=== PATIENT | female | born 1955 | race Caucasian/White ===

== ENCOUNTER 2020-12-28 10:37 | Inpatient (IN) | payer MEDICARE ==
[~2020-12-28 10:37] MED LIST: Rocuronium Bromide 10 MG/ML (10ML VIAL) ONE
[2020-12-28] MEDS ORDERED: Ondansetron PF 4 MG/2 ML Vial IVP PRN (10:39)
[2020-12-28] MEDS ORDERED: Ondansetron ODT 4 MG TAB PO PRN (10:39)
[2020-12-28] MEDS ORDERED: Bisacodyl 5 MG TAB PO PRN (10:39)
[2020-12-28 11:33] LABS: #Monocytes 0.3 10x3/uL (0.0-1.1); #Neutrophils 6.3 10x3/uL (1.5-8.4); %Basophils 0.1 % (0.0-2.0); %Lymphocytes 12.6 % (18.0-47.0); %Monocytes 3.7 % (0.0-10.0); %Neutrophils 82.9 % (40.0-75.0); Hemoglobin 13.8 g/dL (12.0-15.5); Mean Corpuscular HGB CONC 32.7 g/dL (32.0-36.0); Mean Corpuscular Hemoglobin 27.2 pg (27.0-33.0); Mean Corpuscular Volume 83.2 fl (81.6-98.3); Mean Platelet Volume 10.1 fl (7.4-10.4); Platelet Count 184 10x3/uL (150-450); RBC Distribution Width 14.4 % (11.5-14.5); Red Blood Cell (RBC) Count 5.07 10x6/uL (3.90-5.03); White Blood Cell (WBC) Count 7.6 10x3/uL (3.5-10.5)
[2020-12-28 11:37] LABS: Anion Gap 20 mmol/L (10-20); BUN (Urea Nitrogen) 15 mg/dL (9.8-20.1); Calc. Creatinine Clearance 125 mL/min (70-130); Calcium 8.5 mg/dL (7.8-10.44); Carbon Dioxide 22 mmol/L (23-31); Chloride 97 mmol/L (98-107); Glucose 175 mg/dL (80-115); Potassium 4.5 mmol/L (3.5-5.1); Sodium 134 mmol/L (136-145)
[2020-12-28] MEDS: Cefepime 1 GM in Sodium Chloride 0.9% 100 ML IVPB SCH ×2 (12:12→23:08)
[2020-12-28] MEDS: Zinc Sulfate 220 MG CAP PO SCH (12:13)
[2020-12-28 12:41] LABS: Bilirubin Neg (Negative); Blood, Urine 10 (Negative); Clarity Clear (Clear); Glucose, Urine (Dipstick) Normal (Negative); Ketone, Urine Negative (Negative); Leukocyte 100 (Negative); Nitrite Negative (Negative); Protein, Urine (Dipstick) 30 mg/dl (Neg-Trace); Urobilinogen Normal mg/dL (Less than 2)
[2020-12-28 12:48] LABS: Urine Culture Reflex No No
[2020-12-28 12:53] LABS: RBC/HPF 0-3 HPF (0-3); Squamous Epithelial 0-3 HPF (0-3)
[2020-12-28 12:54] LABS: Bacteria/HPF Rare-Few HPF (None Seen)
[2020-12-28 13:30] LABS: Legionella Urinary Ag Negative (Negative)
[2020-12-28 13:31] LABS: Strep pneumo Urine Ag NEGATIVE (NEGATIVE)
[2020-12-28] MEDS: Famotidine 20 MG TAB PO SCH (20:04)
[2020-12-28] MEDS: Doxycycline 100 MG CAP PO SCH (20:05)
[2020-12-29 04:34] LABS: #Monocytes 0.4 10x3/uL (0.0-1.1); #Neutrophils 8.4 10x3/uL (1.5-8.4); %Basophils 0.2 % (0.0-2.0); %Lymphocytes 11.5 % (18.0-47.0); %Monocytes 4.3 % (0.0-10.0); %Neutrophils 83.4 % (40.0-75.0); Hemoglobin 13.5 g/dL (12.0-15.5); Mean Corpuscular HGB CONC 32.1 g/dL (32.0-36.0); Mean Corpuscular Hemoglobin 27.2 pg (27.0-33.0); Mean Corpuscular Volume 84.5 fl (81.6-98.3); Mean Platelet Volume 10.3 fl (7.4-10.4); Platelet Count 232 10x3/uL (150-450); RBC Distribution Width 14.5 % (11.5-14.5); Red Blood Cell (RBC) Count 4.97 10x6/uL (3.90-5.03); White Blood Cell (WBC) Count 10.1 10x3/uL (3.5-10.5)
[2020-12-29 04:44] LABS: ALT (SGPT) 23 U/L (8-55); AST (SGOT) 60 U/L (5-34); Albumin 3.5 g/dL (3.4-4.8); Alkaline Phosphatase 77 U/L (40-110); Anion Gap 16 mmol/L (10-20); BUN (Urea Nitrogen) 18 mg/dL (9.8-20.1); Bilirubin, Total 0.4 mg/dL (0.2-1.2); Calc. Creatinine Clearance 134 mL/min (70-130); Calcium 8.3 mg/dL (7.8-10.44); Carbon Dioxide 26 mmol/L (23-31); Chloride 99 mmol/L (98-107); Glucose 138 mg/dL (80-115); Potassium 4.1 mmol/L (3.5-5.1); Protein, Total 5.5 g/dL (5.8-8.1); Sodium 137 mmol/L (136-145)
[2020-12-29 08:26] LABS: Actual Bicarbonate (HCO3a) 32.7 mEq/L (22-28); Base Excess (BEa) 7.9 mEq/L (-2.0 to +3.0); CO2 Tension 45.7 mmHg (35.0-45.0); Calcium, Ionized (arterial) 1.12 mmol/L (1.12-1.30); Carboxyhemoglobin (COHb) 0.5 gm% (0.0-3.0); O2 Tension (PaO2), arterial 52.5 mmHg (> 80.0); Puncture Site RRA; pH, Arterial 7.47 (7.35-7.45)
[2020-12-29 08:30] LABS: ALV-art Gradient 603.375 mmHg (0-20)
[2020-12-29] MEDS ORDERED: Zinc Sulfate 220 MG CAP PO SCH (09:00)
[2020-12-29] MEDS: Lisinopril 20 MG TAB PO SCH (09:28)
[2020-12-29] MEDS: Famotidine 20 MG TAB PO SCH ×2 (09:29→20:56)
[2020-12-29] MEDS: Ascorbic Acid 500 mg Chewable Tablet PO SCH (09:29)
[2020-12-29] MEDS: Enoxaparin Sodium 40 MG/0.4 ML SYRINGE SC SCH (09:29)
[2020-12-29] MEDS: Dexamethasone 20 MG/5 ML VIAL SLOW IVP SCH (09:30)
[2020-12-29] MEDS: Aspirin Chewable 81 MG TAB PO SCH (09:30)
[2020-12-29] MEDS: Doxycycline 100 MG CAP PO SCH ×2 (09:43→20:57)
[2020-12-29] MEDS: Zinc Sulfate 220 MG CAP PO SCH (13:13)
[2020-12-29] MEDS: Cefepime 1 GM in Sodium Chloride 0.9% 100 ML IVPB SCH ×2 (13:13→23:42)
[2020-12-29] MEDS: Gabapentin 300 MG CAP PO SCH (23:42)
[2020-12-30] MEDS: Gabapentin 300 MG CAP PO SCH ×4 (06:00→22:33)
[2020-12-30 08:09] LABS: Base Excess (BEa) 4.5 mEq/L (-2.0 to +3.0); CO2 Tension 42.8 mmHg (35.0-45.0); Calcium, Ionized (arterial) 1.12 mmol/L (1.12-1.30); Carboxyhemoglobin (COHb) 0.3 gm% (0.0-3.0); Hemoglobin (Hb) 13.4 g/dL (12.0-16.0); O2 Tension (PaO2), arterial 67.1 mmHg (> 80.0); Potassium - ABG Lab 3.9 mmol/L (3.70-5.30); Puncture Site RRA; pH, Arterial 7.45 (7.35-7.45)
[2020-12-30] MEDS: Enoxaparin Sodium 40 MG/0.4 ML SYRINGE SC SCH (09:06)
[2020-12-30] MEDS: Doxycycline 100 MG CAP PO SCH ×2 (09:07→20:08)
[2020-12-30] MEDS: Ascorbic Acid 500 mg Chewable Tablet PO SCH (09:07)
[2020-12-30] MEDS: Aspirin Chewable 81 MG TAB PO SCH (09:07)
[2020-12-30] MEDS: Dexamethasone 20 MG/5 ML VIAL SLOW IVP SCH (09:07)
[2020-12-30] MEDS: Famotidine 20 MG TAB PO SCH (09:07)
[2020-12-30] MEDS: Lisinopril 20 MG TAB PO SCH (09:08)
[2020-12-30] MEDS: Zinc Sulfate 220 MG CAP PO SCH (12:28)
[2020-12-30] MEDS: Cefepime 1 GM in Sodium Chloride 0.9% 100 ML IVPB SCH ×2 (12:28→22:33)
[2020-12-30] MEDS ORDERED: Rocuronium Bromide 10 MG/ML (10ML VIAL) ONE (14:43)
[2020-12-30] MEDS ORDERED: fentaNYL Citrate/PF 2,000 MCG in Sodium Chloride 0.9% 60 ML IV SCH (14:45)
[2020-12-30] MEDS ORDERED: Propofol 1,000 MG/100 ML VIAL IV SCH ×2 (14:45→16:15)
[2020-12-30] MEDS ORDERED: Propofol 1,000 MG/100 ML VIAL IV ONE (14:56)
[2020-12-30] MEDS ORDERED: Rocuronium Bromide 10 MG/ML (10ML VIAL) IVPB SCH (15:00)
[2020-12-30 16:19] LABS: Actual Bicarbonate (HCO3a) 24.5 mEq/L (22-28); Base Excess (BEa) -2.9 mEq/L (-2.0 to +3.0); CO2 Tension 52.4 mmHg (35.0-45.0); Calcium, Ionized (arterial) 1.14 mmol/L (1.12-1.30); Carboxyhemoglobin (COHb) 0.6 gm% (0.0-3.0); Hemoglobin (Hb) 14.9 g/dL (12.0-16.0); O2 Tension (PaO2), arterial 48.8 mmHg (> 80.0); Potassium - ABG Lab 4.3 mmol/L (3.70-5.30); Puncture Site RRA; pH, Arterial 7.29 (7.35-7.45)
[2020-12-30] MEDS: methylPREDNISolone Sod Succ/PF 125 MG/2 ML VIAL IVP SCH ×2 (16:28→22:33)
[2020-12-30] MEDS ORDERED: Norepinephrine 8 MG/0.9% NS 250 ML ONE (19:12)
[2020-12-30] MEDS ORDERED: Norepinephrine 8 MG/0.9% NS 250 ML IVPB SCH (19:15)
[2020-12-30 20:04] LABS: Anion Gap 24 mmol/L (10-20); BUN (Urea Nitrogen) 23 mg/dL (9.8-20.1); Calc. Creatinine Clearance 112 mL/min (70-130); Calcium 8.5 mg/dL (7.8-10.44); Carbon Dioxide 19 mmol/L (23-31); Chloride 103 mmol/L (98-107); Glucose 191 mg/dL (80-115); Magnesium 2.1 mg/dL (1.6-2.6); Potassium 4.3 mmol/L (3.5-5.1); Sodium 142 mmol/L (136-145)
[2020-12-30] MEDS: BARICITINIB 2 MG TAB PO SCH (20:08)
[2020-12-30] MEDS: Pantoprazole 40 MG VIAL IVP SCH (20:08)
[2020-12-30] MEDS: Propofol 1,000 MG/100 ML VIAL IV PRN ×2 (20:08→22:33)
[2020-12-30] MEDS ORDERED: Vecuronium 10 MG VIAL ONE (23:03)
[2020-12-30] MEDS: fentaNYL Citrate-0.9 % NaCl/PF 100 ML IVPB SCH (23:49)
[2020-12-30] MEDS: Vecuronium Bromide 50 MG, Admixture Fee 1 EACH in Sodium Chloride 0.9% 250 ML 250 ML IV SCH (23:59)
[2020-12-31] MEDS ORDERED: Vecuronium 10 MG VIAL IVP SCH (00:30)
[2020-12-31 04:34] LABS: ALT (SGPT) 26 U/L (8-55); AST (SGOT) 35 U/L (5-34); Albumin 3.7 g/dL (3.4-4.8); Alkaline Phosphatase 116 U/L (40-110); Anion Gap 23 mmol/L (10-20); BUN (Urea Nitrogen) 32 mg/dL (9.8-20.1); Bilirubin, Direct 0.3 mg/dL (0.1-0.3); Bilirubin, Total 0.4 mg/dL (0.2-1.2); Calc. Creatinine Clearance 93 mL/min (70-130); Calcium 8.1 mg/dL (7.8-10.44); Carbon Dioxide 21 mmol/L (23-31); Chloride 103 mmol/L (98-107); Glucose 200 mg/dL (80-115); Potassium 4.5 mmol/L (3.5-5.1); Protein, Total 6.3 g/dL (5.8-8.1); Sodium 142 mmol/L (136-145)
[2020-12-31 05:00] LABS: #Monocytes 0.3 10x3/uL (0.0-1.1); #Neutrophils 8.3 10x3/uL (1.5-8.4); %Basophils 0.4 % (0.0-2.0); %Lymphocytes 12.9 % (18.0-47.0); %Monocytes 3.2 % (0.0-10.0); Hemoglobin 12.4 g/dL (12.0-15.5); Mean Corpuscular HGB CONC 31.5 g/dL (32.0-36.0); Mean Corpuscular Hemoglobin 27.1 pg (27.0-33.0); Mean Corpuscular Volume 86.2 fl (81.6-98.3); Mean Platelet Volume 10.2 fl (7.4-10.4); RBC Distribution Width 15.3 % (11.5-14.5); Red Blood Cell (RBC) Count 4.57 10x6/uL (3.90-5.03); White Blood Cell (WBC) Count 10.2 10x3/uL (3.5-10.5)
[2020-12-31 05:01] LABS: Platelet Count 209 10x3/uL (150-450)
[2020-12-31] MEDS ORDERED: Dextrose 5% in Water 1,000 ML IV PRN (05:13)
[2020-12-31] MEDS ORDERED: Dextrose 50% Abboject 50 ML SYRINGE SLOW IVP PRN (05:13)
[2020-12-31] MEDS: Gabapentin 300 MG CAP PO SCH ×4 (05:18→23:40)
[2020-12-31] MEDS: methylPREDNISolone Sod Succ/PF 125 MG/2 ML VIAL IVP SCH ×3 (05:19→20:35)
[2020-12-31] MEDS: Vecuronium Bromide 50 MG, Admixture Fee 1 EACH in Sodium Chloride 0.9% 250 ML 250 ML IV SCH ×2 (06:33→16:59)
[2020-12-31 06:42] LABS: Actual Bicarbonate (HCO3a) 21.2 mEq/L (22-28); Base Excess (BEa) -4.7 mEq/L (-2.0 to +3.0); CO2 Tension 42.4 mmHg (35.0-45.0); Calcium, Ionized (arterial) 1.07 mmol/L (1.12-1.30); Carboxyhemoglobin (COHb) 0.3 gm% (0.0-3.0); Hemoglobin (Hb) 13.2 g/dL (12.0-16.0); O2 Tension (PaO2), arterial 144.6 mmHg (> 80.0); Potassium - ABG Lab 4.3 mmol/L (3.70-5.30); Puncture Site RRA; pH, Arterial 7.32 (7.35-7.45)
[2020-12-31] MEDS: Propofol 1,000 MG/100 ML VIAL IV PRN ×5 (07:40→22:45)
[2020-12-31] MEDS: Aspirin Chewable 81 MG TAB PO SCH (08:09)
[2020-12-31] MEDS: Doxycycline 100 MG CAP PO SCH ×2 (08:09→20:34)
[2020-12-31] MEDS: Pantoprazole 40 MG VIAL IVP SCH ×2 (08:09→20:35)
[2020-12-31] MEDS: Enoxaparin Sodium 40 MG/0.4 ML SYRINGE SC SCH (08:09)
[2020-12-31] MEDS: Ascorbic Acid 500 mg Chewable Tablet PO SCH ×2 (08:09→08:17)
[2020-12-31] MEDS: Lisinopril 20 MG TAB PO SCH (08:10)
[2020-12-31] MEDS: Zinc Sulfate 220 MG CAP PO SCH ×2 (08:17)
[2020-12-31] MEDS: HumaLOG 300 UNITS/3 ML VIAL SC PRN ×3 (10:10→21:38)
[2020-12-31] MEDS: Cefepime 1 GM in Sodium Chloride 0.9% 100 ML IVPB SCH ×2 (10:53→23:40)
[2020-12-31] MEDS ORDERED: Vecuronium Bromide 50 MG, Admixture Fee 1 EACH in Sodium Chloride 0.9% 250 ML 250 ML IV SCH (13:45)
[2020-12-31] MEDS ORDERED: Furosemide 20 MG TAB PO SCH (14:00)
[2020-12-31] MEDS: fentaNYL Citrate-0.9 % NaCl/PF 100 ML IVPB SCH (14:04)
[2020-12-31 17:15] LABS: Actual Bicarbonate (HCO3a) 22.8 mEq/L (22-28); Base Excess (BEa) -2.3 mEq/L (-2.0 to +3.0); CO2 Tension 40.1 mmHg (35.0-45.0); Calcium, Ionized (arterial) 1.12 mmol/L (1.12-1.30); Carboxyhemoglobin (COHb) 0.2 gm% (0.0-3.0); Hemoglobin (Hb) 13.1 g/dL (12.0-16.0); O2 Tension (PaO2), arterial 63.6 mmHg (> 80.0); Potassium - ABG Lab 4.1 mmol/L (3.70-5.30); Puncture Site RRA; pH, Arterial 7.37 (7.35-7.45)
[2020-12-31 17:17] LABS: ALV-art Gradient 456.675 mmHg (0-20)
[2020-12-31] MEDS: BARICITINIB 2 MG TAB PO SCH (20:34)
[2020-12-31] MEDS: Enoxaparin Sodium 60 MG/0.6 ML SYRINGE SC SCH (20:35)
[2021-01-01] MEDS: Vecuronium Bromide 50 MG, Admixture Fee 1 EACH in Sodium Chloride 0.9% 250 ML 250 ML IV SCH ×3 (02:16→20:38)
[2021-01-01] MEDS: Propofol 1,000 MG/100 ML VIAL IV PRN ×7 (02:17→23:09)
[2021-01-01] MEDS: fentaNYL Citrate-0.9 % NaCl/PF 100 ML IVPB SCH ×2 (03:13→14:27)
[2021-01-01] MEDS: HumaLOG 300 UNITS/3 ML VIAL SC PRN ×4 (03:47→22:45)
[2021-01-01 03:57] LABS: ALT (SGPT) 26 U/L (8-55); AST (SGOT) 35 U/L (5-34); Albumin 3.6 g/dL (3.4-4.8); Alkaline Phosphatase 93 U/L (40-110); Anion Gap 18 mmol/L (10-20); BUN (Urea Nitrogen) 40 mg/dL (9.8-20.1); Bilirubin, Direct 0.3 mg/dL (0.1-0.3); Bilirubin, Total 0.4 mg/dL (0.2-1.2); Calc. Creatinine Clearance 87 mL/min (70-130); Calcium 8.7 mg/dL (7.8-10.44); Carbon Dioxide 23 mmol/L (23-31); Chloride 106 mmol/L (98-107); Glucose 299 mg/dL (80-115); Potassium 4.3 mmol/L (3.5-5.1); Protein, Total 5.8 g/dL (5.8-8.1); Sodium 143 mmol/L (136-145)
[2021-01-01] MEDS: Gabapentin 300 MG CAP PO SCH ×3 (06:00→17:44)
[2021-01-01] MEDS: methylPREDNISolone Sod Succ/PF 125 MG/2 ML VIAL IVP SCH ×3 (06:01→22:17)
[2021-01-01] MEDS: Pantoprazole 40 MG VIAL IVP SCH ×2 (08:01→20:11)
[2021-01-01] MEDS: Doxycycline 100 MG CAP PO SCH ×2 (08:01→20:11)
[2021-01-01] MEDS: Zinc Sulfate 220 MG CAP PO SCH (08:02)
[2021-01-01] MEDS: Ascorbic Acid 500 mg Chewable Tablet PO SCH (08:02)
[2021-01-01] MEDS: Aspirin Chewable 81 MG TAB PO SCH (08:02)
[2021-01-01] MEDS: Enoxaparin Sodium 60 MG/0.6 ML SYRINGE SC SCH ×2 (08:02→20:12)
[2021-01-01] MEDS ORDERED: Enoxaparin Sodium 60 MG/0.6 ML SYRINGE ONE (08:02)
[2021-01-01 08:19] LABS: Actual Bicarbonate (HCO3a) 23.4 mEq/L (22-28); Base Excess (BEa) 0.1 mEq/L (-2.0 to +3.0); CO2 Tension 33.5 mmHg (35.0-45.0); Calcium, Ionized (arterial) 1.14 mmol/L (1.12-1.30); Carboxyhemoglobin (COHb) 0.1 gm% (0.0-3.0); Hemoglobin (Hb) 12.4 g/dL (12.0-16.0); O2 Tension (PaO2), arterial 95.7 mmHg (> 80.0); Potassium - ABG Lab 4.1 mmol/L (3.70-5.30); Puncture Site RRA; pH, Arterial 7.46 (7.35-7.45)
[2021-01-01 08:22] LABS: ALV-art Gradient 325.875 mmHg (0-20)
[2021-01-01] MEDS ORDERED: Furosemide 40 MG/4 ML VIAL SLOW IVP SCH ×2 (09:00→18:45)
[2021-01-01] MEDS ORDERED: Lantus 1000 UNITS/10 ML VIAL SC SCH (09:00)
[2021-01-01] MEDS: Cefepime 1 GM in Sodium Chloride 0.9% 100 ML IVPB SCH ×2 (11:24→23:09)
[2021-01-01 11:31] LABS: Actual Bicarbonate (HCO3a) 28.2 mEq/L (22-28); Base Excess (BEa) 1.4 mEq/L (-2.0 to +3.0); Calcium, Ionized (arterial) 1.14 mmol/L (1.12-1.30); Carboxyhemoglobin (COHb) 0.1 gm% (0.0-3.0); Hemoglobin (Hb) 12.8 g/dL (12.0-16.0); Potassium - ABG Lab 3.9 mmol/L (3.70-5.30); Puncture Site RRA; pH, Arterial 7.34 (7.35-7.45)
[2021-01-01] MEDS: NPH, Human Insulin Isophane 300 UNIT/3 ML VIAL SC SCH ×2 (13:02→22:20)
[2021-01-01] MEDS ORDERED: methylPREDNISolone Sod Succ/PF 125 MG/2 ML VIAL IVP SCH (14:00)
[2021-01-01 16:29] LABS: Sodium, Urine Less than 20 mmol/L (Not Available)
[2021-01-01 19:22] LABS: Troponin I 0.833 ng/mL (< 0.028)
[2021-01-01] MEDS: BARICITINIB 2 MG TAB PO SCH (20:10)
[2021-01-02] MEDS: fentaNYL Citrate-0.9 % NaCl/PF 100 ML IVPB SCH ×3 (01:15→22:43)
[2021-01-02] MEDS: Propofol 1,000 MG/100 ML VIAL IV PRN ×7 (02:45→22:42)
[2021-01-02 04:22] LABS: Hemoglobin 11.4 g/dL (12.0-15.5); Mean Corpuscular HGB CONC 29.8 g/dL (32.0-36.0); Mean Corpuscular Hemoglobin 26.8 pg (27.0-33.0); Mean Corpuscular Volume 90.1 fl (81.6-98.3); Mean Platelet Volume 9.9 fl (7.4-10.4); Platelet Count 179 10x3/uL (150-450); RBC Distribution Width 15.7 % (11.5-14.5); Red Blood Cell (RBC) Count 4.25 10x6/uL (3.90-5.03); White Blood Cell (WBC) Count 11.7 10x3/uL (3.5-10.5)
[2021-01-02 04:30] LABS: MDiff Complete? YES
[2021-01-02 04:36] LABS: Band 1 % (5-11); Lymphocytes 13 % (21-51); Monocytes 8 % (0-10); Neutrophil 76 % (42-75); Reactive Lymphocytes 2 % (0-10)
[2021-01-02 04:39] LABS: ALT (SGPT) 24 U/L (8-55); AST (SGOT) 19 U/L (5-34); Albumin 3.4 g/dL (3.4-4.8); Alkaline Phosphatase 72 U/L (40-110); Anion Gap 15 mmol/L (10-20); BUN (Urea Nitrogen) 53 mg/dL (9.8-20.1); Bilirubin, Direct 0.2 mg/dL (0.1-0.3); Bilirubin, Total 0.3 mg/dL (0.2-1.2); Calc. Creatinine Clearance 81 mL/min (70-130); Calcium 8.9 mg/dL (7.8-10.44); Carbon Dioxide 26 mmol/L (23-31); Chloride 109 mmol/L (98-107); Glucose 196 mg/dL (80-115); Platelet Morphology Comment Appears Adequate; Potassium 4.3 mmol/L (3.5-5.1); Protein, Total 5.5 g/dL (5.8-8.1); RBC Morphology Normal; Sodium 146 mmol/L (136-145)
[2021-01-02] MEDS: Furosemide 40 MG/4 ML VIAL SLOW IVP SCH ×2 (04:59→15:52)
[2021-01-02] MEDS: HumaLOG 300 UNITS/3 ML VIAL SC PRN ×4 (05:42→22:45)
[2021-01-02] MEDS: NPH, Human Insulin Isophane 300 UNIT/3 ML VIAL SC SCH ×3 (05:58→22:41)
[2021-01-02] MEDS: Vecuronium Bromide 50 MG, Admixture Fee 1 EACH in Sodium Chloride 0.9% 250 ML 250 ML IV SCH (06:00)
[2021-01-02 07:56] LABS: Actual Bicarbonate (HCO3a) 29.5 mEq/L (22-28); Base Excess (BEa) 1.5 mEq/L (-2.0 to +3.0); CO2 Tension 62.8 mmHg (35.0-45.0); Calcium, Ionized (arterial) 1.17 mmol/L (1.12-1.30); Carboxyhemoglobin (COHb) 0.1 gm% (0.0-3.0); Hemoglobin (Hb) 12.4 g/dL (12.0-16.0); O2 Tension (PaO2), arterial 92.6 mmHg (> 80.0); Potassium - ABG Lab 4.1 mmol/L (3.70-5.30); Puncture Site RRA; pH, Arterial 7.29 (7.35-7.45)
[2021-01-02] MEDS: Ascorbic Acid 500 mg Chewable Tablet PO SCH (08:57)
[2021-01-02] MEDS: Aspirin Chewable 81 MG TAB PO SCH (08:57)
[2021-01-02] MEDS: Zinc Sulfate 220 MG CAP PO SCH (08:58)
[2021-01-02] MEDS: Pantoprazole 40 MG VIAL IVP SCH ×2 (08:58→22:42)
[2021-01-02] MEDS: Enoxaparin Sodium 60 MG/0.6 ML SYRINGE SC SCH ×2 (09:11→22:46)
[2021-01-02] MEDS: Doxycycline 100 MG CAP PO SCH ×2 (09:11→22:47)
[2021-01-02] MEDS: Cefepime 1 GM in Sodium Chloride 0.9% 100 ML IVPB SCH ×2 (11:32→23:39)
[2021-01-02] MEDS: methylPREDNISolone Sod Succ/PF 125 MG/2 ML VIAL IVP SCH ×3 (15:51→22:38)
[2021-01-02] MEDS ORDERED: Enoxaparin Sodium 60 MG/0.6 ML SYRINGE ONE (22:34)
[2021-01-02] MEDS: BARICITINIB 2 MG TAB PO SCH (22:42)
[2021-01-02] MEDS: Senokot S 8.6-50 MG TAB PO SCH (22:43)
[2021-01-03] MEDS: Propofol 1,000 MG/100 ML VIAL IV PRN ×7 (01:25→22:35)
[2021-01-03 04:57] LABS: ALT (SGPT) 23 U/L (8-55); AST (SGOT) 16 U/L (5-34); Albumin 3.4 g/dL (3.4-4.8); Alkaline Phosphatase 61 U/L (40-110); Anion Gap 17 mmol/L (10-20); BUN (Urea Nitrogen) 74 mg/dL (9.8-20.1); Bilirubin, Direct 0.2 mg/dL (0.1-0.3); Bilirubin, Total 0.3 mg/dL (0.2-1.2); Calc. Creatinine Clearance 76 mL/min (70-130); Calcium 8.7 mg/dL (7.8-10.44); Carbon Dioxide 26 mmol/L (23-31); Chloride 110 mmol/L (98-107); Globulin 2.2 g/dL (2.4-3.5); Glucose 241 mg/dL (80-115); Potassium 4.6 mmol/L (3.5-5.1); Protein, Total 5.6 g/dL (5.8-8.1); Sodium 148 mmol/L (136-145)
[2021-01-03 05:01] LABS: Hemoglobin 11.2 g/dL (12.0-15.5); Mean Corpuscular HGB CONC 29.6 g/dL (32.0-36.0); Mean Corpuscular Hemoglobin 26.9 pg (27.0-33.0); Mean Corpuscular Volume 90.9 fl (81.6-98.3); Mean Platelet Volume 10.4 fl (7.4-10.4); Platelet Count 188 10x3/uL (150-450); RBC Distribution Width 15.5 % (11.5-14.5); Red Blood Cell (RBC) Count 4.17 10x6/uL (3.90-5.03); White Blood Cell (WBC) Count 10.8 10x3/uL (3.5-10.5)
[2021-01-03 05:41] LABS: MDiff Complete? YES
[2021-01-03 05:46] LABS: Band 6 % (5-11); Lymphocytes 11 % (21-51); Monocytes 11 % (0-10); Neutrophil 72 % (42-75)
[2021-01-03 05:53] LABS: Platelet Morphology Comment Appears Adequate; RBC Morphology Normal
[2021-01-03] MEDS: NPH, Human Insulin Isophane 300 UNIT/3 ML VIAL SC SCH ×3 (06:22→22:36)
[2021-01-03] MEDS: methylPREDNISolone Sod Succ/PF 125 MG/2 ML VIAL IVP SCH ×3 (06:22→20:50)
[2021-01-03] MEDS: HumaLOG 300 UNITS/3 ML VIAL SC PRN ×4 (06:22→22:36)
[2021-01-03 07:19] LABS: Actual Bicarbonate (HCO3a) 28.5 mEq/L (22-28); Base Excess (BEa) 2.8 mEq/L (-2.0 to +3.0); CO2 Tension 48.8 mmHg (35.0-45.0); Carboxyhemoglobin (COHb) 0.3 gm% (0.0-3.0); Hemoglobin (Hb) 12.2 g/dL (12.0-16.0); O2 Tension (PaO2), arterial 69.5 mmHg (> 80.0); Potassium - ABG Lab 4.3 mmol/L (3.70-5.30); Puncture Site LRA; pH, Arterial 7.39 (7.35-7.45)
[2021-01-03] MEDS: Senokot S 8.6-50 MG TAB PO SCH ×2 (08:33→20:50)
[2021-01-03] MEDS: Zinc Sulfate 220 MG CAP PO SCH (08:33)
[2021-01-03] MEDS: Ascorbic Acid 500 mg Chewable Tablet PO SCH (08:33)
[2021-01-03] MEDS: Pantoprazole 40 MG VIAL IVP SCH ×2 (08:33→20:29)
[2021-01-03] MEDS: Aspirin Chewable 81 MG TAB PO SCH (08:33)
[2021-01-03] MEDS: Polyethylene Glycol 3350 17 GM Packet PER TUBE SCH (08:34)
[2021-01-03] MEDS: Doxycycline 100 MG CAP PO SCH ×2 (08:35→20:28)
[2021-01-03] MEDS: Enoxaparin Sodium 60 MG/0.6 ML SYRINGE SC SCH (08:35)
[2021-01-03] MEDS: fentaNYL Citrate-0.9 % NaCl/PF 100 ML IVPB SCH ×2 (09:19→20:45)
[2021-01-03] MEDS: Cefepime 1 GM in Sodium Chloride 0.9% 100 ML IVPB SCH ×2 (11:05→22:37)
[2021-01-03] MEDS: BARICITINIB 2 MG TAB PO SCH (20:28)
[2021-01-03] MEDS: Enoxaparin Sodium 100 MG/ML SYRINGE SC SCH (20:33)
[2021-01-04] MEDS: Propofol 1,000 MG/100 ML VIAL IV PRN ×5 (02:15→21:15)
[2021-01-04 04:04] LABS: ALT (SGPT) 25 U/L (8-55); AST (SGOT) 17 U/L (5-34); Albumin 3.4 g/dL (3.4-4.8); Alkaline Phosphatase 56 U/L (40-110); Bilirubin, Direct 0.2 mg/dL (0.1-0.3); Bilirubin, Total 0.3 mg/dL (0.2-1.2); Protein, Total 5.5 g/dL (5.8-8.1)
[2021-01-04] MEDS: HumaLOG 300 UNITS/3 ML VIAL SC PRN ×4 (05:40→22:06)
[2021-01-04] MEDS: NPH, Human Insulin Isophane 300 UNIT/3 ML VIAL SC SCH ×3 (05:40→21:19)
[2021-01-04] MEDS: methylPREDNISolone Sod Succ/PF 125 MG/2 ML VIAL IVP SCH ×3 (05:41→21:14)
[2021-01-04 07:11] LABS: Actual Bicarbonate (HCO3a) 29.5 mEq/L (22-28); Base Excess (BEa) 3.3 mEq/L (-2.0 to +3.0); CO2 Tension 52.4 mmHg (35.0-45.0); Calcium, Ionized (arterial) 1.23 mmol/L (1.12-1.30); Carboxyhemoglobin (COHb) 0.3 gm% (0.0-3.0); Hemoglobin (Hb) 12.5 g/dL (12.0-16.0); O2 Tension (PaO2), arterial 88.9 mmHg (> 80.0); Potassium - ABG Lab 4.2 mmol/L (3.70-5.30); Puncture Site RRA; pH, Arterial 7.37 (7.35-7.45)
[2021-01-04] MEDS: Ascorbic Acid 500 mg Chewable Tablet PO SCH (08:34)
[2021-01-04] MEDS: Aspirin Chewable 81 MG TAB PO SCH (08:34)
[2021-01-04] MEDS: Polyethylene Glycol 3350 17 GM Packet PER TUBE SCH (08:34)
[2021-01-04] MEDS: Enoxaparin Sodium 100 MG/ML SYRINGE SC SCH ×2 (08:34→21:12)
[2021-01-04] MEDS: Pantoprazole 40 MG VIAL IVP SCH ×2 (08:35→21:12)
[2021-01-04] MEDS: Doxycycline 100 MG CAP PO SCH ×2 (08:35→21:19)
[2021-01-04] MEDS: fentaNYL Citrate-0.9 % NaCl/PF 100 ML IVPB SCH ×2 (08:56→23:50)
[2021-01-04] MEDS: Zinc Sulfate 220 MG CAP PO SCH (09:15)
[2021-01-04] MEDS: Senokot S 8.6-50 MG TAB PO SCH ×2 (11:53→21:12)
[2021-01-04] MEDS: Cefepime 1 GM in Sodium Chloride 0.9% 100 ML IVPB SCH ×2 (11:53→23:50)
[2021-01-04 13:06] LABS: Actual Bicarbonate (HCO3a) 29.6 mEq/L (22-28); Base Excess (BEa) 3.8 mEq/L (-2.0 to +3.0); CO2 Tension 49.4 mmHg (35.0-45.0); Calcium, Ionized (arterial) 1.23 mmol/L (1.12-1.30); Carboxyhemoglobin (COHb) 0.2 gm% (0.0-3.0); Hemoglobin (Hb) 13.1 g/dL (12.0-16.0); Potassium - ABG Lab 4.1 mmol/L (3.70-5.30); Puncture Site RRA
[2021-01-04 15:11] LABS: Anion Gap 19 mmol/L (10-20); BUN (Urea Nitrogen) 76 mg/dL (9.8-20.1); Calc. Creatinine Clearance 114 mL/min (70-130); Calcium 8.8 mg/dL (7.8-10.44); Carbon Dioxide 22 mmol/L (23-31); Chloride 115 mmol/L (98-107); Glucose 200 mg/dL (80-115); Potassium 4.8 mmol/L (3.5-5.1); Sodium 151 mmol/L (136-145)
[2021-01-04] MEDS: BARICITINIB 2 MG TAB PO SCH (21:14)
[2021-01-05] MEDS: Bisacodyl 10 MG SUPP PR PRN (00:03)
[2021-01-05] MEDS: HumaLOG 300 UNITS/3 ML VIAL SC PRN (04:02)
[2021-01-05] MEDS: Propofol 1,000 MG/100 ML VIAL IV PRN ×2 (04:02→10:43)
[2021-01-05] MEDS: NPH, Human Insulin Isophane 300 UNIT/3 ML VIAL SC SCH ×3 (05:12→21:59)
[2021-01-05] MEDS: methylPREDNISolone Sod Succ/PF 125 MG/2 ML VIAL IVP SCH ×3 (05:12→21:57)
[2021-01-05 07:19] LABS: Actual Bicarbonate (HCO3a) 27.8 mEq/L (22-28); Base Excess (BEa) 3.7 mEq/L (-2.0 to +3.0); CO2 Tension 40.4 mmHg (35.0-45.0); Calcium, Ionized (arterial) 1.17 mmol/L (1.12-1.30); Carboxyhemoglobin (COHb) 0.5 gm% (0.0-3.0); Hemoglobin (Hb) 12.8 g/dL (12.0-16.0); O2 Tension (PaO2), arterial 81.4 mmHg (> 80.0); Potassium - ABG Lab 4.3 mmol/L (3.70-5.30); Puncture Site RRA; pH, Arterial 7.46 (7.35-7.45)
[2021-01-05] MEDS: Enoxaparin Sodium 100 MG/ML SYRINGE SC SCH ×2 (08:01→21:56)
[2021-01-05] MEDS: Ascorbic Acid 500 mg Chewable Tablet PO SCH (08:02)
[2021-01-05] MEDS: Senokot S 8.6-50 MG TAB PO SCH ×2 (08:02→21:54)
[2021-01-05] MEDS: Aspirin Chewable 81 MG TAB PO SCH (08:03)
[2021-01-05] MEDS: Zinc Sulfate 220 MG CAP PO SCH (08:03)
[2021-01-05] MEDS: Polyethylene Glycol 3350 17 GM Packet PER TUBE SCH (08:03)
[2021-01-05] MEDS: Doxycycline 100 MG CAP PO SCH ×2 (08:03→21:54)
[2021-01-05] MEDS: Pantoprazole 40 MG VIAL IVP SCH ×2 (08:03→21:54)
[2021-01-05 09:38] LABS: Hemoglobin 12.3 g/dL (12.0-15.5); Mean Corpuscular HGB CONC 30.1 g/dL (32.0-36.0); Mean Corpuscular Volume 89.9 fl (81.6-98.3); Platelet Count 264 10x3/uL (150-450); RBC Distribution Width 15.5 % (11.5-14.5); Red Blood Cell (RBC) Count 4.55 10x6/uL (3.90-5.03); White Blood Cell (WBC) Count 15.7 10x3/uL (3.5-10.5)
[2021-01-05 09:40] LABS: MDiff Complete? YES
[2021-01-05 09:44] LABS: Anion Gap 15 mmol/L (10-20); BUN (Urea Nitrogen) 63 mg/dL (9.8-20.1); Calc. Creatinine Clearance 128 mL/min (70-130); Calcium 8.7 mg/dL (7.8-10.44); Carbon Dioxide 25 mmol/L (23-31); Chloride 116 mmol/L (98-107); Glucose 137 mg/dL (80-115); Potassium 4.7 mmol/L (3.5-5.1); Sodium 151 mmol/L (136-145)
[2021-01-05 10:20] LABS: Band 2 % (5-11); Lymphocytes 6 % (21-51); Monocytes 4 % (0-10); Neutrophil 88 % (42-75); Platelet Morphology Comment Appears Adequate
[2021-01-05 10:22] LABS: RBC Morphology Normal
[2021-01-05] MEDS: Cefepime 1 GM in Sodium Chloride 0.9% 100 ML IVPB SCH (12:12)
[2021-01-05] MEDS ORDERED: Furosemide 20 MG/2 ML VIAL SLOW IVP SCH (15:00)
[2021-01-05] MEDS: Budesonide 0.5 MG/2 ML NEB NEB SCH (19:09)
[2021-01-05] MEDS: BARICITINIB 2 MG TAB PO SCH (21:54)
[2021-01-06] MEDS: Cefepime 1 GM in Sodium Chloride 0.9% 100 ML IVPB SCH ×3 (00:01→23:02)
[2021-01-06] MEDS: Propofol 1,000 MG/100 ML VIAL IV PRN ×3 (01:02→19:05)
[2021-01-06] MEDS: HumaLOG 300 UNITS/3 ML VIAL SC PRN (04:11)
[2021-01-06] MEDS: NPH, Human Insulin Isophane 300 UNIT/3 ML VIAL SC SCH ×3 (05:19→22:01)
[2021-01-06] MEDS: methylPREDNISolone Sod Succ/PF 125 MG/2 ML VIAL IVP SCH ×3 (05:21→21:59)
[2021-01-06] MEDS: Budesonide 0.5 MG/2 ML NEB NEB SCH ×2 (06:10→18:30)
[2021-01-06] MEDS ORDERED: Enoxaparin Sodium 100 MG/ML SYRINGE ONE (07:26)
[2021-01-06 07:30] LABS: Base Excess (BEa) 4.2 mEq/L (-2.0 to +3.0); CO2 Tension 39.3 mmHg (35.0-45.0); Calcium, Ionized (arterial) 1.14 mmol/L (1.12-1.30); Carboxyhemoglobin (COHb) 0.4 gm% (0.0-3.0); Hemoglobin (Hb) 12.7 g/dL (12.0-16.0); O2 Tension (PaO2), arterial 62.5 mmHg (> 80.0); Potassium - ABG Lab 4.3 mmol/L (3.70-5.30); Puncture Site RRA; pH, Arterial 7.47 (7.35-7.45)
[2021-01-06 07:31] LABS: ALV-art Gradient 244.875 mmHg (0-20)
[2021-01-06] MEDS: Ascorbic Acid 500 mg Chewable Tablet PO SCH (07:33)
[2021-01-06] MEDS: Aspirin Chewable 81 MG TAB PO SCH (07:33)
[2021-01-06] MEDS: Zinc Sulfate 220 MG CAP PO SCH (07:33)
[2021-01-06] MEDS: Polyethylene Glycol 3350 17 GM Packet PER TUBE SCH (07:33)
[2021-01-06] MEDS: Enoxaparin Sodium 100 MG/ML SYRINGE SC SCH ×2 (07:33→22:00)
[2021-01-06] MEDS: Pantoprazole 40 MG VIAL IVP SCH ×2 (07:33→21:59)
[2021-01-06] MEDS: Doxycycline 100 MG CAP PO SCH ×2 (07:33→21:59)
[2021-01-06] MEDS: Senokot S 8.6-50 MG TAB PO SCH ×2 (07:33→21:59)
[2021-01-06] MEDS: Propofol BOLUS 1,000 MG/100 ML VIAL IV PRN ×2 (07:45→09:15)
[2021-01-06 09:35] LABS: #Basophils 0.1 10x3/uL (0.0-0.2); #Monocytes 0.7 10x3/uL (0.0-1.1); #Neutrophils 13.8 10x3/uL (1.5-8.4); %Basophils 0.3 % (0.0-2.0); %Lymphocytes 7.6 % (18.0-47.0); %Monocytes 4.4 % (0.0-10.0); Hemoglobin 12.3 g/dL (12.0-15.5); Mean Corpuscular HGB CONC 30.8 g/dL (32.0-36.0); Mean Corpuscular Volume 87.9 fl (81.6-98.3); Mean Platelet Volume 11.8 fl (7.4-10.4); Platelet Count 273 10x3/uL (150-450); RBC Distribution Width 15.6 % (11.5-14.5); Red Blood Cell (RBC) Count 4.55 10x6/uL (3.90-5.03); White Blood Cell (WBC) Count 16.6 10x3/uL (3.5-10.5)
[2021-01-06 09:51] LABS: Anion Gap 15 mmol/L (10-20); BUN (Urea Nitrogen) 53 mg/dL (9.8-20.1); Calc. Creatinine Clearance 116 mL/min (70-130); Calcium 8.5 mg/dL (7.8-10.44); Carbon Dioxide 28 mmol/L (23-31); Chloride 111 mmol/L (98-107); Glucose 147 mg/dL (80-115); Potassium 4.9 mmol/L (3.5-5.1); Sodium 149 mmol/L (136-145)
[2021-01-06 10:00] LABS: ALT (SGPT) 28 U/L (8-55); AST (SGOT) 24 U/L (5-34); Albumin 3.4 g/dL (3.4-4.8); Alkaline Phosphatase 54 U/L (40-110); Bilirubin, Direct 0.3 mg/dL (0.1-0.3); Bilirubin, Total 0.6 mg/dL (0.2-1.2); Protein, Total 5.4 g/dL (5.8-8.1)
[2021-01-06] MEDS ORDERED: Furosemide 20 MG/2 ML VIAL SLOW IVP SCH (10:45)
[2021-01-06] MEDS: Vancomycin 1.5 GRAM/300 ML BAG 1.5 GM in Premix Bag 1 BAG IVPB SCH ×2 (11:50→23:00)
[2021-01-06] MEDS: fentaNYL Citrate-0.9 % NaCl/PF 100 ML IVPB SCH (12:00)
[2021-01-06 12:42] LABS: Bilirubin Neg (Negative); Blood, Urine Negative (Negative); Clarity Clear (Clear); Glucose, Urine (Dipstick) Normal (Negative); Ketone, Urine Negative (Negative); Leukocyte Negative (Negative); Nitrite Negative (Negative); Protein, Urine (Dipstick) Negative (Neg-Trace); Specific Gravity, Urine 1.005 (1.002-1.036); Urobilinogen Normal mg/dL (Less than 2)
[2021-01-06 12:45] LABS: Anion Gap 16 mmol/L (10-20); BUN (Urea Nitrogen) 54 mg/dL (9.8-20.1); Calc. Creatinine Clearance 118 mL/min (70-130); Calcium 8.7 mg/dL (7.8-10.44); Carbon Dioxide 28 mmol/L (23-31); Chloride 112 mmol/L (98-107); Glucose 126 mg/dL (80-115); Potassium 4.8 mmol/L (3.5-5.1); Sodium 151 mmol/L (136-145)
[2021-01-06 12:45] LABS: Urine Culture Reflex No No
[2021-01-06 13:02] LABS: Bacteria/HPF None Seen HPF (None Seen); RBC/HPF None Seen HPF (0-3); Squamous Epithelial 0-3 HPF (0-3); WBC/HPF 0-3 HPF (0-3); Yeast-Budding 2+ HPF (None Seen)
[2021-01-06 17:56] LABS: Anion Gap 15 mmol/L (10-20); BUN (Urea Nitrogen) 51 mg/dL (9.8-20.1); Calc. Creatinine Clearance 123 mL/min (70-130); Calcium 8.4 mg/dL (7.8-10.44); Carbon Dioxide 30 mmol/L (23-31); Chloride 109 mmol/L (98-107); Glucose 88 mg/dL (80-115); Potassium 4.6 mmol/L (3.5-5.1); Sodium 149 mmol/L (136-145)
[2021-01-06] MEDS ORDERED: BARICITINIB 2 MG TAB PO SCH (21:00)
[2021-01-06 21:01] LABS: Anion Gap 14 mmol/L (10-20); BUN (Urea Nitrogen) 52 mg/dL (9.8-20.1); Calc. Creatinine Clearance 116 mL/min (70-130); Calcium 8.5 mg/dL (7.8-10.44); Carbon Dioxide 29 mmol/L (23-31); Chloride 109 mmol/L (98-107); Glucose 155 mg/dL (80-115); Potassium 4.7 mmol/L (3.5-5.1); Sodium 147 mmol/L (136-145)
[2021-01-06] MEDS: Furosemide 20 MG/2 ML VIAL SLOW IVP SCH (22:00)
[2021-01-07] MEDS: fentaNYL Citrate-0.9 % NaCl/PF 100 ML IVPB SCH ×2 (03:51→21:54)
[2021-01-07] MEDS: methylPREDNISolone Sod Succ/PF 125 MG/2 ML VIAL IVP SCH ×3 (05:16→21:19)
[2021-01-07] MEDS: NPH, Human Insulin Isophane 300 UNIT/3 ML VIAL SC SCH ×3 (05:16→21:26)
[2021-01-07] MEDS: HumaLOG 300 UNITS/3 ML VIAL SC PRN ×2 (05:36→22:22)
[2021-01-07] MEDS: Propofol 1,000 MG/100 ML VIAL IV PRN ×2 (05:38→18:01)
[2021-01-07] MEDS: Budesonide 0.5 MG/2 ML NEB NEB SCH ×2 (07:30→19:30)
[2021-01-07 07:52] LABS: Actual Bicarbonate (HCO3a) 30.7 mEq/L (22-28); Base Excess (BEa) 6.3 mEq/L (-2.0 to +3.0); CO2 Tension 43.5 mmHg (35.0-45.0); Calcium, Ionized (arterial) 1.13 mmol/L (1.12-1.30); Carboxyhemoglobin (COHb) 0.5 gm% (0.0-3.0); Hemoglobin (Hb) 12.9 g/dL (12.0-16.0); O2 Tension (PaO2), arterial 73.4 mmHg (> 80.0); Potassium - ABG Lab 4.5 mmol/L (3.70-5.30); Puncture Site RRA; pH, Arterial 7.47 (7.35-7.45)
[2021-01-07 07:54] LABS: ALV-art Gradient 228.725 mmHg (0-20)
[2021-01-07] MEDS ORDERED: Pantoprazole 40 MG VIAL ONE (08:06)
[2021-01-07] MEDS: Polyethylene Glycol 3350 17 GM Packet PER TUBE SCH (08:52)
[2021-01-07] MEDS: Senokot S 8.6-50 MG TAB PO SCH ×2 (08:52→21:18)
[2021-01-07] MEDS: Aspirin Chewable 81 MG TAB PO SCH (08:53)
[2021-01-07] MEDS: Ascorbic Acid 500 mg Chewable Tablet PO SCH (08:53)
[2021-01-07] MEDS: Pantoprazole 40 MG VIAL IVP SCH ×2 (08:53→21:19)
[2021-01-07] MEDS: Zinc Sulfate 220 MG CAP PO SCH (08:53)
[2021-01-07] MEDS: Furosemide 20 MG/2 ML VIAL SLOW IVP SCH ×2 (08:53→21:18)
[2021-01-07] MEDS: Enoxaparin Sodium 100 MG/ML SYRINGE SC SCH ×2 (08:53→21:23)
[2021-01-07] MEDS: Doxycycline 100 MG CAP PO SCH (08:53)
[2021-01-07] MEDS ORDERED: Cyclobenzaprine 10 MG TAB PO SCH (11:00)
[2021-01-07] MEDS: oxyCODONE 5 MG TAB PO SCH ×3 (11:12→21:21)
[2021-01-07] MEDS: Vancomycin HCl 1 GM in Sodium Chloride 0.9% 250 ML 250 ML IVPB SCH (11:14)
[2021-01-07] MEDS: Cefepime 2 GM in Sodium Chloride 0.9% 100 ML IVPB SCH ×2 (11:15→18:00)
[2021-01-07] MEDS: Gabapentin 300 MG CAP PO SCH ×2 (13:53→21:17)
[2021-01-07] MEDS: clonazePAM 1 MG TAB PO SCH ×2 (13:54→21:19)
[2021-01-07] MEDS: Cyclobenzaprine 10 MG TAB PO SCH (21:18)
[2021-01-08] MEDS: Vancomycin HCl 1 GM in Sodium Chloride 0.9% 250 ML 250 ML IVPB SCH ×2 (00:25→13:49)
[2021-01-08] MEDS: Cefepime 2 GM in Sodium Chloride 0.9% 100 ML IVPB SCH ×3 (00:47→18:00)
[2021-01-08] MEDS: oxyCODONE 5 MG TAB PO SCH ×4 (03:20→21:15)
[2021-01-08] MEDS: HumaLOG 300 UNITS/3 ML VIAL SC PRN ×3 (04:05→16:09)
[2021-01-08 04:14] LABS: #Monocytes 0.7 10x3/uL (0.0-1.1); #Neutrophils 11.6 10x3/uL (1.5-8.4); %Basophils 0.1 % (0.0-2.0); %Monocytes 5.2 % (0.0-10.0); %Neutrophils 82.4 % (40.0-75.0); Hemoglobin 11.2 g/dL (12.0-15.5); Mean Corpuscular HGB CONC 30.9 g/dL (32.0-36.0); Mean Corpuscular Hemoglobin 27.2 pg (27.0-33.0); Mean Corpuscular Volume 88.1 fl (81.6-98.3); Mean Platelet Volume 11.6 fl (7.4-10.4); Platelet Count 279 10x3/uL (150-450); RBC Distribution Width 14.8 % (11.5-14.5); Red Blood Cell (RBC) Count 4.12 10x6/uL (3.90-5.03); White Blood Cell (WBC) Count 14.1 10x3/uL (3.5-10.5)
[2021-01-08 04:22] LABS: ALT (SGPT) 29 U/L (8-55); AST (SGOT) 21 U/L (5-34); Albumin 3.1 g/dL (3.4-4.8); Alkaline Phosphatase 42 U/L (40-110); Anion Gap 13 mmol/L (10-20); BUN (Urea Nitrogen) 53 mg/dL (9.8-20.1); Bilirubin, Total 0.6 mg/dL (0.2-1.2); Calc. Creatinine Clearance 119 mL/min (70-130); Calcium 8.2 mg/dL (7.8-10.44); Carbon Dioxide 28 mmol/L (23-31); Chloride 104 mmol/L (98-107); Globulin 2.1 g/dL (2.4-3.5); Glucose 219 mg/dL (80-115); Potassium 4.4 mmol/L (3.5-5.1); Protein, Total 5.2 g/dL (5.8-8.1); Sodium 141 mmol/L (136-145)
[2021-01-08] MEDS: methylPREDNISolone Sod Succ/PF 125 MG/2 ML VIAL IVP SCH ×3 (06:25→21:18)
[2021-01-08] MEDS: NPH, Human Insulin Isophane 300 UNIT/3 ML VIAL SC SCH ×3 (06:26→21:18)
[2021-01-08] MEDS: Budesonide 0.5 MG/2 ML NEB NEB SCH ×2 (07:02→19:10)
[2021-01-08 07:29] LABS: Actual Bicarbonate (HCO3a) 27.6 mEq/L (22-28); Base Excess (BEa) 3.1 mEq/L (-2.0 to +3.0); Calcium, Ionized (arterial) 1.15 mmol/L (1.12-1.30); Carboxyhemoglobin (COHb) 0.5 gm% (0.0-3.0); Hemoglobin (Hb) 12.3 g/dL (12.0-16.0); O2 Tension (PaO2), arterial 75.2 mmHg (> 80.0); Puncture Site RRA; pH, Arterial 7.44 (7.35-7.45)
[2021-01-08] MEDS: Gabapentin 300 MG CAP PO SCH ×3 (09:07→21:13)
[2021-01-08] MEDS: Ascorbic Acid 500 mg Chewable Tablet PO SCH (09:07)
[2021-01-08] MEDS: Cyclobenzaprine 10 MG TAB PO SCH ×2 (09:07→21:13)
[2021-01-08] MEDS: clonazePAM 1 MG TAB PO SCH ×3 (09:07→21:15)
[2021-01-08] MEDS: Aspirin Chewable 81 MG TAB PO SCH (09:07)
[2021-01-08] MEDS: Senokot S 8.6-50 MG TAB PO SCH ×2 (09:08→21:15)
[2021-01-08] MEDS: Pantoprazole 40 MG VIAL IVP SCH ×2 (09:08→21:18)
[2021-01-08] MEDS: Polyethylene Glycol 3350 17 GM Packet PER TUBE SCH (09:08)
[2021-01-08] MEDS: Enoxaparin Sodium 100 MG/ML SYRINGE SC SCH ×2 (09:08→21:17)
[2021-01-08] MEDS: Furosemide 20 MG/2 ML VIAL SLOW IVP SCH ×2 (09:08→21:17)
[2021-01-08] MEDS: Zinc Sulfate 220 MG CAP PO SCH (09:12)
[2021-01-08 11:36] LABS: Vancomycin, Trough 16.4 ug/mL
[2021-01-09] MEDS: Vancomycin HCl 1 GM in Sodium Chloride 0.9% 250 ML 250 ML IVPB SCH (00:51)
[2021-01-09] MEDS: oxyCODONE 5 MG TAB PO SCH ×8 (00:52→22:43)
[2021-01-09] MEDS: Cefepime 2 GM in Sodium Chloride 0.9% 100 ML IVPB SCH ×3 (00:52→16:46)
[2021-01-09 04:23] LABS: Anion Gap 13 mmol/L (10-20); BUN (Urea Nitrogen) 44 mg/dL (9.8-20.1); Calc. Creatinine Clearance 146 mL/min (70-130); Calcium 8.5 mg/dL (7.8-10.44); Carbon Dioxide 26 mmol/L (23-31); Chloride 102 mmol/L (98-107); Glucose 79 mg/dL (80-115); Magnesium 2.1 mg/dL (1.6-2.6); Potassium 3.4 mmol/L (3.5-5.1); Sodium 138 mmol/L (136-145)
[2021-01-09 04:27] LABS: #Monocytes 1.3 10x3/uL (0.0-1.1); #Neutrophils 12.6 10x3/uL (1.5-8.4); %Basophils 0.1 % (0.0-2.0); %Eosinophils 0.1 % (0.0-6.0); %Lymphocytes 12.9 % (18.0-47.0); %Monocytes 8.2 % (0.0-10.0); %Neutrophils 76.7 % (40.0-75.0); Hemoglobin 10.9 g/dL (12.0-15.5); Mean Corpuscular HGB CONC 31.1 g/dL (32.0-36.0); Mean Corpuscular Hemoglobin 27.4 pg (27.0-33.0); Mean Corpuscular Volume 88.2 fl (81.6-98.3); Mean Platelet Volume 12.8 fl (7.4-10.4); Platelet Count 298 10x3/uL (150-450); RBC Distribution Width 14.5 % (11.5-14.5); Red Blood Cell (RBC) Count 3.98 10x6/uL (3.90-5.03); White Blood Cell (WBC) Count 16.4 10x3/uL (3.5-10.5)
[2021-01-09] MEDS: methylPREDNISolone Sod Succ/PF 125 MG/2 ML VIAL IVP SCH (06:09)
[2021-01-09] MEDS ORDERED: Potassium Chloride 20 MEQ TAB PO SCH (06:15)
[2021-01-09] MEDS: NPH, Human Insulin Isophane 300 UNIT/3 ML VIAL SC SCH ×3 (06:21→22:47)
[2021-01-09] MEDS: Budesonide 0.5 MG/2 ML NEB NEB SCH ×2 (06:55→18:44)
[2021-01-09] MEDS: fentaNYL Citrate-0.9 % NaCl/PF 100 ML IVPB SCH (07:35)
[2021-01-09 07:52] LABS: Actual Bicarbonate (HCO3a) 26.8 mEq/L (22-28); Base Excess (BEa) 2.9 mEq/L (-2.0 to +3.0); CO2 Tension 38.5 mmHg (35.0-45.0); Calcium, Ionized (arterial) 1.12 mmol/L (1.12-1.30); Carboxyhemoglobin (COHb) 0.6 gm% (0.0-3.0); Critical Notified Whom: Telemed/ RN; Hemoglobin (Hb) 12.5 g/dL (12.0-16.0); O2 Tension (PaO2), arterial 60.1 mmHg (> 80.0); Potassium - ABG Lab 3.4 mmol/L (3.70-5.30); Puncture Site LRA; pH, Arterial 7.46 (7.35-7.45)
[2021-01-09] MEDS: clonazePAM 1 MG TAB PO SCH ×3 (07:53→22:42)
[2021-01-09] MEDS: Polyethylene Glycol 3350 17 GM Packet PER TUBE SCH (07:53)
[2021-01-09] MEDS: Gabapentin 300 MG CAP PO SCH ×3 (07:53→22:42)
[2021-01-09] MEDS: Ascorbic Acid 500 mg Chewable Tablet PO SCH (07:53)
[2021-01-09] MEDS: Senokot S 8.6-50 MG TAB PO SCH (07:54)
[2021-01-09] MEDS: Aspirin Chewable 81 MG TAB PO SCH (07:54)
[2021-01-09] MEDS: Cyclobenzaprine 10 MG TAB PO SCH ×2 (07:54→22:42)
[2021-01-09] MEDS: Zinc Sulfate 220 MG CAP PO SCH (07:54)
[2021-01-09] MEDS: Furosemide 20 MG/2 ML VIAL SLOW IVP SCH ×2 (07:55→20:50)
[2021-01-09] MEDS: Pantoprazole 40 MG VIAL IVP SCH ×2 (07:55→20:50)
[2021-01-09] MEDS: Enoxaparin Sodium 100 MG/ML SYRINGE SC SCH ×2 (07:55→22:42)
[2021-01-09 07:56] LABS: ALV-art Gradient 248.275 mmHg (0-20)
[2021-01-09] MEDS ORDERED: Lidocaine 1% PF 5 ML VIAL ONE (10:48)
[2021-01-09] MEDS ORDERED: Sodium Bicarbonate 2.5 MEQ/5 ML VIAL ONE (10:48)
[2021-01-09 11:17] LABS: Potassium 3.6 mmol/L (3.5-5.1)
[2021-01-09 11:22] LABS: Vancomycin, Trough 18.8 ug/mL
[2021-01-09] MEDS ORDERED: methylPREDNISolone Sod Succ 40 MG VIAL IVP SCH (14:00)
[2021-01-09] MEDS: VANCOMYCIN 1.25 GM/250 ML BAG 1.25 GM in Premix Bag 1 BAG IVPB SCH (15:03)
[2021-01-10] MEDS: Enoxaparin Sodium 100 MG/ML SYRINGE SC SCH ×3 (00:03→20:18)
[2021-01-10] MEDS: oxyCODONE 5 MG TAB PO SCH ×2 (01:02→12:46)
[2021-01-10] MEDS: Cefepime 2 GM in Sodium Chloride 0.9% 100 ML IVPB SCH ×3 (01:52→16:29)
[2021-01-10 04:30] LABS: #Neutrophils 12.7 10x3/uL (1.5-8.4); %Basophils 0.1 % (0.0-2.0); %Eosinophils 0.3 % (0.0-6.0); %Lymphocytes 9.8 % (18.0-47.0); %Monocytes 6.3 % (0.0-10.0); %Neutrophils 81.8 % (40.0-75.0); Hemoglobin 10.8 g/dL (12.0-15.5); Mean Corpuscular HGB CONC 31.7 g/dL (32.0-36.0); Mean Corpuscular Hemoglobin 27.4 pg (27.0-33.0); Mean Corpuscular Volume 86.5 fl (81.6-98.3); Mean Platelet Volume 12.8 fl (7.4-10.4); Platelet Count 301 10x3/uL (150-450); RBC Distribution Width 14.2 % (11.5-14.5); Red Blood Cell (RBC) Count 3.94 10x6/uL (3.90-5.03); White Blood Cell (WBC) Count 15.5 10x3/uL (3.5-10.5)
[2021-01-10 04:36] LABS: Phosphorus 2.1 mg/dL (2.3-4.7)
[2021-01-10 04:38] LABS: ALT (SGPT) 39 U/L (8-55); AST (SGOT) 34 U/L (5-34); Alkaline Phosphatase 43 U/L (40-110); Anion Gap 11 mmol/L (10-20); BUN (Urea Nitrogen) 34 mg/dL (9.8-20.1); Bilirubin, Total 1.1 mg/dL (0.2-1.2); Calc. Creatinine Clearance 144 mL/min (70-130); Carbon Dioxide 22 mmol/L (23-31); Chloride 109 mmol/L (98-107); Globulin 2.4 g/dL (2.4-3.5); Glucose 84 mg/dL (80-115); Magnesium 1.8 mg/dL (1.6-2.6); Protein, Total 5.4 g/dL (5.8-8.1); Sodium 139 mmol/L (136-145)
[2021-01-10] MEDS ORDERED: Nitroglycerin 2% Ointment 1 INCH/1 GM Packet TOP SCH (04:45)
[2021-01-10 04:58] LABS: Potassium 2.7 mmol/L (3.5-5.1)
[2021-01-10] MEDS ORDERED: Potassium Chloride 20 MEQ TAB PO SCH (05:15)
[2021-01-10] MEDS: NPH, Human Insulin Isophane 300 UNIT/3 ML VIAL SC SCH ×3 (05:38→20:20)
[2021-01-10] MEDS: Budesonide 0.5 MG/2 ML NEB NEB SCH ×2 (06:55→18:55)
[2021-01-10] MEDS ORDERED: Magnesium 2 GM/50 ML 2 GM in Premix Bag 1 BAG IVPB SCH (07:45)
[2021-01-10] MEDS ORDERED: Magnesium 2 GM/50 ML BAG (IN WATER) ONE (08:00)
[2021-01-10] MEDS: Potassium Chloride 20 MEQ TAB PO SCH ×2 (08:06→08:57)
[2021-01-10] MEDS: Pantoprazole 40 MG VIAL IVP SCH ×2 (09:10→20:19)
[2021-01-10] MEDS: methylPREDNISolone Sod Succ 40 MG VIAL IVP SCH (09:10)
[2021-01-10] MEDS: Furosemide 20 MG/2 ML VIAL SLOW IVP SCH ×2 (09:10→20:18)
[2021-01-10] MEDS: Potassium Chloride 20 MEQ in Premix Bag 1 BAG IVPB SCH ×2 (10:11→11:01)
[2021-01-10] MEDS ORDERED: Electrolyte Replacement Protocol 1 EACH FS SCH (10:45)
[2021-01-10] MEDS ORDERED: Electrolyte Replacement Protocol FS PRN (11:00)
[2021-01-10] MEDS: VANCOMYCIN 1.25 GM/250 ML BAG 1.25 GM in Premix Bag 1 BAG IVPB SCH (11:02)
[2021-01-10] MEDS: Thiamine HCl 200 MG/2 ML VIAL SLOW IVP SCH (12:16)
[2021-01-10] MEDS: clonazePAM 1 MG TAB PO SCH (12:28)
[2021-01-10] MEDS: Senokot S 8.6-50 MG TAB PO SCH (12:28)
[2021-01-10] MEDS: Zinc Sulfate 220 MG CAP PO SCH (12:28)
[2021-01-10] MEDS: Cyclobenzaprine 10 MG TAB PO SCH (12:29)
[2021-01-10] MEDS: Gabapentin 300 MG CAP PO SCH ×3 (12:29→20:19)
[2021-01-10] MEDS: Aspirin Chewable 81 MG TAB PO SCH (12:30)
[2021-01-10] MEDS: Ascorbic Acid 500 mg Chewable Tablet PO SCH (12:30)
[2021-01-10] MEDS: Polyethylene Glycol 3350 17 GM Packet PER TUBE SCH (12:46)
[2021-01-10] MEDS ORDERED: Ondansetron ODT 4 MG TAB PER TUBE PRN (13:30)
[2021-01-10 15:18] LABS: Anion Gap 16 mmol/L (10-20); BUN (Urea Nitrogen) 34 mg/dL (9.8-20.1); Calc. Creatinine Clearance 138 mL/min (70-130); Calcium 8.4 mg/dL (7.8-10.44); Carbon Dioxide 20 mmol/L (23-31); Chloride 108 mmol/L (98-107); Glucose 85 mg/dL (80-115); Potassium 4.1 mmol/L (3.5-5.1); Sodium 140 mmol/L (136-145)
[2021-01-10 17:46] LABS: Free T4 (Free Thyroxine) 0.95 ng/dL (0.70-1.48); Thyroid Stimulating Hormone 0.3168 uIU/mL (0.35-4.94)
[2021-01-10] MEDS: clonazePAM 1 MG TAB PER TUBE SCH (20:10)
[2021-01-10] MEDS: Cyclobenzaprine 10 MG TAB PER TUBE SCH (20:10)
[2021-01-10] MEDS: Senokot S 8.6-50 MG TAB PER TUBE SCH (20:19)
[2021-01-10] MEDS: oxyCODONE 5 MG TAB PER TUBE PRN (23:06)
[2021-01-11] MEDS: Cefepime 2 GM in Sodium Chloride 0.9% 100 ML IVPB SCH ×3 (02:52→16:18)
[2021-01-11 03:24] LABS: #Eosinphils 0.1 10x3/uL (0.0-0.5); #Neutrophils 13.2 10x3/uL (1.5-8.4); %Basophils 0.2 % (0.0-2.0); %Eosinophils 0.4 % (0.0-6.0); %Lymphocytes 11.1 % (18.0-47.0); %Monocytes 5.9 % (0.0-10.0); Hemoglobin 10.9 g/dL (12.0-15.5); Mean Corpuscular HGB CONC 31.8 g/dL (32.0-36.0); Mean Corpuscular Hemoglobin 27.3 pg (27.0-33.0); Mean Corpuscular Volume 85.8 fl (81.6-98.3); Mean Platelet Volume 12.2 fl (7.4-10.4); Platelet Count 313 10x3/uL (150-450); RBC Distribution Width 14.6 % (11.5-14.5); White Blood Cell (WBC) Count 16.6 10x3/uL (3.5-10.5)
[2021-01-11 03:33] LABS: Vancomycin, Trough 14.8 ug/mL
[2021-01-11] MEDS: VANCOMYCIN 1.25 GM/250 ML BAG 1.25 GM in Premix Bag 1 BAG IVPB SCH ×2 (03:51→21:43)
[2021-01-11 04:00] LABS: ALT (SGPT) 34 U/L (8-55); AST (SGOT) 30 U/L (5-34); Albumin 3.2 g/dL (3.4-4.8); Alkaline Phosphatase 41 U/L (40-110); Anion Gap 16 mmol/L (10-20); BUN (Urea Nitrogen) 35 mg/dL (9.8-20.1); Bilirubin, Total 0.8 mg/dL (0.2-1.2); Calc. Creatinine Clearance 131 mL/min (70-130); Calcium 8.4 mg/dL (7.8-10.44); Carbon Dioxide 19 mmol/L (23-31); Chloride 108 mmol/L (98-107); Globulin 2.1 g/dL (2.4-3.5); Glucose 82 mg/dL (80-115); Magnesium 2.3 mg/dL (1.6-2.6); Phosphorus 3.3 mg/dL (2.3-4.7); Potassium 4.1 mmol/L (3.5-5.1); Protein, Total 5.3 g/dL (5.8-8.1); Sodium 139 mmol/L (136-145)
[2021-01-11] MEDS: Budesonide 0.5 MG/2 ML NEB NEB SCH ×2 (06:45→19:45)
[2021-01-11] MEDS: NPH, Human Insulin Isophane 300 UNIT/3 ML VIAL SC SCH ×3 (07:25→22:23)
[2021-01-11] MEDS ORDERED: Albumin 25% 25 GM/100 ML BOT IVPB SCH (08:15)
[2021-01-11] MEDS: Pantoprazole 40 MG VIAL IVP SCH ×2 (08:47→20:13)
[2021-01-11] MEDS: Enoxaparin Sodium 100 MG/ML SYRINGE SC SCH ×2 (08:47→20:03)
[2021-01-11] MEDS: Polyethylene Glycol 3350 17 GM Packet PER TUBE SCH (08:47)
[2021-01-11] MEDS: methylPREDNISolone Sod Succ 40 MG VIAL IVP SCH (08:48)
[2021-01-11] MEDS: Furosemide 20 MG/2 ML VIAL SLOW IVP SCH ×2 (08:48→20:12)
[2021-01-11] MEDS: Aspirin Chewable 81 MG TAB PER TUBE SCH (08:56)
[2021-01-11] MEDS: Senokot S 8.6-50 MG TAB PER TUBE SCH ×2 (08:57→20:13)
[2021-01-11] MEDS: Gabapentin 300 MG CAP PO SCH ×3 (08:57→20:12)
[2021-01-11] MEDS: Folic Acid 1 MG TAB PER TUBE SCH (08:57)
[2021-01-11] MEDS: Bisacodyl 10 MG SUPP PR PRN (08:57)
[2021-01-11] MEDS: Zinc Sulfate 220 MG CAP PER TUBE SCH (08:58)
[2021-01-11] MEDS: Cyclobenzaprine 10 MG TAB PER TUBE SCH ×2 (08:58→20:12)
[2021-01-11] MEDS: Ascorbic Acid 500 mg Chewable Tablet PER TUBE SCH (08:58)
[2021-01-11] MEDS: clonazePAM 1 MG TAB PER TUBE SCH ×2 (09:00→20:12)
[2021-01-11 10:41] LABS: Legionella Urinary Ag Negative (Negative); Strep pneumo Urine Ag NEGATIVE (NEGATIVE)
[2021-01-11] MEDS: Thiamine HCl 200 MG/2 ML VIAL SLOW IVP SCH (11:00)
[2021-01-11] MEDS ORDERED: Metoprolol Tartrate 5 MG/5 ML VIAL IVP SCH (11:45)
[2021-01-11] MEDS ORDERED: Enoxaparin Sodium 40 MG/0.4 ML SYRINGE SC SCH (12:00)
[2021-01-11] MEDS: HumaLOG 300 UNITS/3 ML VIAL SC PRN (16:31)
[2021-01-11] MEDS: Enoxaparin Sodium 40 MG/0.4 ML SYRINGE SC SCH (20:12)
[2021-01-11] MEDS: oxyCODONE 5 MG TAB PER TUBE PRN (23:17)
[2021-01-12] MEDS: Cefepime 2 GM in Sodium Chloride 0.9% 100 ML IVPB SCH (01:21)
[2021-01-12 03:55] LABS: #Eosinphils 0.1 10x3/uL (0.0-0.5); #Neutrophils 12.3 10x3/uL (1.5-8.4); %Basophils 0.3 % (0.0-2.0); %Eosinophils 0.8 % (0.0-6.0); %Monocytes 6.2 % (0.0-10.0); %Neutrophils 79.6 % (40.0-75.0); Hemoglobin 9.8 g/dL (12.0-15.5); Mean Corpuscular HGB CONC 29.4 g/dL (32.0-36.0); Mean Corpuscular Hemoglobin 27.5 pg (27.0-33.0); Mean Corpuscular Volume 93.3 fl (81.6-98.3); Mean Platelet Volume 12.3 fl (7.4-10.4); Platelet Count 245 10x3/uL (150-450); RBC Distribution Width 15.1 % (11.5-14.5); Red Blood Cell (RBC) Count 3.57 10x6/uL (3.90-5.03); White Blood Cell (WBC) Count 15.4 10x3/uL (3.5-10.5)
[2021-01-12] MEDS: NPH, Human Insulin Isophane 300 UNIT/3 ML VIAL SC SCH ×3 (04:55→21:49)
[2021-01-12 04:56] LABS: Anisocytosis SLIGHT = 6-15 cells (100X) (0-5/hpf); Hypochromia SLIGHT = 6-15 cells (100X) (0-5/hpf); Microcytosis SLIGHT = 6-15 cells (100X) (0-5/hpf); Polychromasia SLIGHT = 2-3 cells (100X) (0-2/hpf)
[2021-01-12 04:57] LABS: Large Platelets MODERATE; Platelet Morphology Comment Appears Adequate
[2021-01-12] MEDS: Budesonide 0.5 MG/2 ML NEB NEB SCH ×2 (06:55→19:15)
[2021-01-12] MEDS: Ascorbic Acid 500 mg Chewable Tablet PER TUBE SCH (08:27)
[2021-01-12] MEDS: clonazePAM 1 MG TAB PER TUBE SCH ×3 (08:27→21:49)
[2021-01-12] MEDS: oxyCODONE 5 MG TAB PER TUBE PRN ×3 (08:28→20:48)
[2021-01-12] MEDS: Folic Acid 1 MG TAB PER TUBE SCH (08:29)
[2021-01-12] MEDS: Aspirin Chewable 81 MG TAB PER TUBE SCH (08:29)
[2021-01-12] MEDS: Senokot S 8.6-50 MG TAB PER TUBE SCH ×2 (08:29→20:49)
[2021-01-12] MEDS: Pantoprazole 40 MG VIAL IVP SCH ×2 (08:29→20:48)
[2021-01-12] MEDS: Polyethylene Glycol 3350 17 GM Packet PER TUBE SCH (08:29)
[2021-01-12] MEDS: Zinc Sulfate 220 MG CAP PER TUBE SCH (08:29)
[2021-01-12] MEDS: Enoxaparin Sodium 40 MG/0.4 ML SYRINGE SC SCH ×2 (08:35→20:48)
[2021-01-12] MEDS: Cyclobenzaprine 10 MG TAB PER TUBE SCH ×4 (08:35→22:01)
[2021-01-12] MEDS ORDERED: Enoxaparin Sodium 40 MG/0.4 ML SYRINGE ONE (08:35)
[2021-01-12] MEDS: methylPREDNISolone Sod Succ 40 MG VIAL IVP SCH (08:36)
[2021-01-12] MEDS: Gabapentin 300 MG CAP PO SCH ×5 (08:36→22:01)
[2021-01-12] MEDS: Furosemide 20 MG/2 ML VIAL SLOW IVP SCH (08:36)
[2021-01-12] MEDS: Thiamine HCl 200 MG/2 ML VIAL SLOW IVP SCH (11:00)
[2021-01-12] MEDS ORDERED: Morphine 4 MG/ML VIAL SLOW IVP SCH (22:00)
[2021-01-12] MEDS ORDERED: Lorazepam 2 MG/ML VIAL SLOW IVP SCH (22:00)
[2021-01-13] MEDS: NPH, Human Insulin Isophane 300 UNIT/3 ML VIAL SC SCH ×2 (06:03→13:28)
[2021-01-13] MEDS: Budesonide 0.5 MG/2 ML NEB NEB SCH ×2 (06:30→19:15)
[2021-01-13 06:38] LABS: Anion Gap 19 mmol/L (10-20); BUN (Urea Nitrogen) 33 mg/dL (9.8-20.1); Calc. Creatinine Clearance 144 mL/min (70-130); Calcium 8.9 mg/dL (7.8-10.44); Carbon Dioxide 15 mmol/L (23-31); Chloride 114 mmol/L (98-107); Glucose 116 mg/dL (80-115); Potassium 3.4 mmol/L (3.5-5.1); Sodium 145 mmol/L (136-145)
[2021-01-13 06:47] LABS: Mean Corpuscular HGB CONC 31.3 g/dL (32.0-36.0); Mean Corpuscular Volume 86.3 fl (81.6-98.3); Platelet Count 221 10x3/uL (150-450); RBC Distribution Width 15.3 % (11.5-14.5); Red Blood Cell (RBC) Count 3.71 10x6/uL (3.90-5.03); White Blood Cell (WBC) Count 13.8 10x3/uL (3.5-10.5)
[2021-01-13 07:40] LABS: Band 1 % (5-11); Eosinophils 3 % (0-10); Lymphocytes 15 % (21-51); Monocytes 4 % (0-10)
[2021-01-13 07:41] LABS: Neutrophil 75 % (42-75); Reactive Lymphocytes 2 % (0-10)
[2021-01-13 07:42] LABS: Large Platelets MODERATE; Platelet Clumps SLIGHT; Platelet Morphology Comment Appears Adequate
[2021-01-13 07:45] LABS: MDiff Complete? YES
[2021-01-13 07:46] LABS: RBC Morphology Normal
[2021-01-13] MEDS: clonazePAM 1 MG TAB PER TUBE SCH ×2 (08:30→21:21)
[2021-01-13] MEDS: Senokot S 8.6-50 MG TAB PER TUBE SCH ×3 (08:30→21:24)
[2021-01-13] MEDS: Aspirin Chewable 81 MG TAB PER TUBE SCH (08:30)
[2021-01-13] MEDS: Zinc Sulfate 220 MG CAP PER TUBE SCH (08:30)
[2021-01-13] MEDS: Gabapentin 300 MG CAP PO SCH ×3 (08:30→21:21)
[2021-01-13] MEDS: Polyethylene Glycol 3350 17 GM Packet PER TUBE SCH (08:31)
[2021-01-13] MEDS: methylPREDNISolone Sod Succ 40 MG VIAL IVP SCH (08:31)
[2021-01-13] MEDS: Furosemide 20 MG/2 ML VIAL SLOW IVP SCH (08:31)
[2021-01-13] MEDS: Ascorbic Acid 500 mg Chewable Tablet PER TUBE SCH (08:31)
[2021-01-13] MEDS: Folic Acid 1 MG TAB PER TUBE SCH (08:31)
[2021-01-13] MEDS: Cyclobenzaprine 10 MG TAB PER TUBE SCH ×2 (08:31→21:21)
[2021-01-13] MEDS: Pantoprazole 40 MG VIAL IVP SCH ×2 (08:31→21:21)
[2021-01-13] MEDS: Enoxaparin Sodium 40 MG/0.4 ML SYRINGE SC SCH ×2 (08:32→21:22)
[2021-01-13] MEDS: oxyCODONE 5 MG TAB PER TUBE PRN ×3 (08:35→16:58)
[2021-01-13] MEDS ORDERED: Potassium Bicarbonate/Cit Ac 20 MEQ TAB PO SCH ×2 (09:00→14:00)
[2021-01-13] MEDS: Thiamine HCl 200 MG/2 ML VIAL SLOW IVP SCH (13:25)
[2021-01-14 04:09] LABS: Anion Gap 19 mmol/L (10-20); BUN (Urea Nitrogen) 32 mg/dL (9.8-20.1); Calc. Creatinine Clearance 137 mL/min (70-130); Calcium 9.1 mg/dL (7.8-10.44); Carbon Dioxide 17 mmol/L (23-31); Chloride 118 mmol/L (98-107); Glucose 112 mg/dL (80-115); Sodium 150 mmol/L (136-145)
[2021-01-14] MEDS: NPH, Human Insulin Isophane 300 UNIT/3 ML VIAL SC SCH ×4 (05:28→23:13)
[2021-01-14] MEDS: Budesonide 0.5 MG/2 ML NEB NEB SCH ×2 (07:05→19:18)
[2021-01-14 07:07] LABS: #Eosinphils 0.1 10x3/uL (0.0-0.5); #Monocytes 0.6 10x3/uL (0.0-1.1); #Neutrophils 7.1 10x3/uL (1.5-8.4); %Basophils 0.2 % (0.0-2.0); %Eosinophils 1.2 % (0.0-6.0); %Monocytes 6.1 % (0.0-10.0); %Neutrophils 69.5 % (40.0-75.0); Mean Corpuscular HGB CONC 30.8 g/dL (32.0-36.0); Mean Corpuscular Volume 87.8 fl (81.6-98.3); Platelet Count 285 10x3/uL (150-450); RBC Distribution Width 15.6 % (11.5-14.5); White Blood Cell (WBC) Count 10.2 10x3/uL (3.5-10.5)
[2021-01-14] MEDS: Ascorbic Acid 500 mg Chewable Tablet PER TUBE SCH (09:07)
[2021-01-14] MEDS: Zinc Sulfate 220 MG CAP PER TUBE SCH (09:07)
[2021-01-14] MEDS: oxyCODONE 5 MG TAB PER TUBE PRN (09:07)
[2021-01-14] MEDS: clonazePAM 1 MG TAB PER TUBE SCH ×2 (09:07→21:07)
[2021-01-14] MEDS: Cyclobenzaprine 10 MG TAB PER TUBE SCH ×2 (09:07→21:07)
[2021-01-14] MEDS: Folic Acid 1 MG TAB PER TUBE SCH (09:08)
[2021-01-14] MEDS: Pantoprazole 40 MG VIAL IVP SCH ×2 (09:08→21:08)
[2021-01-14] MEDS: Furosemide 20 MG/2 ML VIAL SLOW IVP SCH (09:08)
[2021-01-14] MEDS: methylPREDNISolone Sod Succ 40 MG VIAL IVP SCH (09:08)
[2021-01-14] MEDS: Enoxaparin Sodium 40 MG/0.4 ML SYRINGE SC SCH ×2 (09:08→21:08)
[2021-01-14] MEDS: Gabapentin 300 MG CAP PO SCH ×3 (09:08→21:07)
[2021-01-14] MEDS: Aspirin Chewable 81 MG TAB PER TUBE SCH (09:08)
[2021-01-14] MEDS: Polyethylene Glycol 3350 17 GM Packet PER TUBE SCH (09:09)
[2021-01-14] MEDS: Senokot S 8.6-50 MG TAB PER TUBE SCH ×2 (09:09→21:28)
[2021-01-14] MEDS: Thiamine HCl 200 MG/2 ML VIAL SLOW IVP SCH (15:01)
[2021-01-15 04:51] LABS: Anion Gap 17 mmol/L (10-20); BUN (Urea Nitrogen) 30 mg/dL (9.8-20.1); Calc. Creatinine Clearance 132 mL/min (70-130); Calcium 9.1 mg/dL (7.8-10.44); Carbon Dioxide 20 mmol/L (23-31); Chloride 118 mmol/L (98-107); Glucose 117 mg/dL (80-115); Potassium 3.2 mmol/L (3.5-5.1); Sodium 152 mmol/L (136-145)
[2021-01-15] MEDS: NPH, Human Insulin Isophane 300 UNIT/3 ML VIAL SC SCH ×2 (05:48→13:23)
[2021-01-15] MEDS: Budesonide 0.5 MG/2 ML NEB NEB SCH ×2 (06:10→19:50)
[2021-01-15] MEDS: Ascorbic Acid 500 mg Chewable Tablet PER TUBE SCH (07:53)
[2021-01-15] MEDS: Aspirin Chewable 81 MG TAB PER TUBE SCH (07:53)
[2021-01-15] MEDS: Folic Acid 1 MG TAB PER TUBE SCH (07:54)
[2021-01-15] MEDS: Cyclobenzaprine 10 MG TAB PER TUBE SCH ×2 (07:54→21:22)
[2021-01-15] MEDS: Enoxaparin Sodium 40 MG/0.4 ML SYRINGE SC SCH ×2 (07:54→21:19)
[2021-01-15] MEDS: methylPREDNISolone Sod Succ 40 MG VIAL IVP SCH (07:54)
[2021-01-15] MEDS: Gabapentin 300 MG CAP PO SCH ×3 (07:54→21:23)
[2021-01-15] MEDS: Polyethylene Glycol 3350 17 GM Packet PER TUBE SCH (07:54)
[2021-01-15] MEDS: Furosemide 20 MG/2 ML VIAL SLOW IVP SCH (07:54)
[2021-01-15] MEDS: clonazePAM 1 MG TAB PER TUBE SCH ×2 (07:54→21:22)
[2021-01-15] MEDS: Pantoprazole 40 MG VIAL IVP SCH ×2 (07:54→21:20)
[2021-01-15] MEDS: Senokot S 8.6-50 MG TAB PER TUBE SCH (07:55)
[2021-01-15] MEDS: Zinc Sulfate 220 MG CAP PER TUBE SCH (07:55)
[2021-01-15] MEDS ORDERED: Potassium Bicarbonate/Cit Ac 20 MEQ TAB PO SCH ×2 (08:00→13:00)
[2021-01-15] MEDS: Thiamine HCl 200 MG/2 ML VIAL SLOW IVP SCH (10:41)
[2021-01-15] MEDS: HumaLOG 300 UNITS/3 ML VIAL SC PRN (10:54)
[2021-01-15 11:59] LABS: Potassium 3.4 mmol/L (3.5-5.1)
[2021-01-15] MEDS: oxyCODONE 5 MG TAB PER TUBE PRN (21:29)
[2021-01-16] MEDS: Senokot S 8.6-50 MG TAB PER TUBE SCH ×3 (01:05→21:42)
[2021-01-16] MEDS: NPH, Human Insulin Isophane 300 UNIT/3 ML VIAL SC SCH ×4 (01:10→22:30)
[2021-01-16 05:44] LABS: Anion Gap 17 mmol/L (10-20); BUN (Urea Nitrogen) 28 mg/dL (9.8-20.1); Calc. Creatinine Clearance 123 mL/min (70-130); Calcium 9.3 mg/dL (7.8-10.44); Carbon Dioxide 24 mmol/L (23-31); Chloride 118 mmol/L (98-107); Glucose 128 mg/dL (80-115); Potassium 3.5 mmol/L (3.5-5.1); Sodium 155 mmol/L (136-145)
[2021-01-16] MEDS: Budesonide 0.5 MG/2 ML NEB NEB SCH ×2 (06:30→19:50)
[2021-01-16] MEDS: Dexamethasone 4 MG TAB PO SCH (07:55)
[2021-01-16] MEDS: Gabapentin 300 MG CAP PO SCH ×3 (07:56→21:40)
[2021-01-16] MEDS: Ascorbic Acid 500 mg Chewable Tablet PER TUBE SCH (07:56)
[2021-01-16] MEDS: clonazePAM 1 MG TAB PER TUBE SCH ×2 (07:56→21:41)
[2021-01-16] MEDS: Cyclobenzaprine 10 MG TAB PER TUBE SCH ×2 (07:56→21:41)
[2021-01-16] MEDS: Folic Acid 1 MG TAB PER TUBE SCH (07:56)
[2021-01-16] MEDS: Enoxaparin Sodium 40 MG/0.4 ML SYRINGE SC SCH ×2 (07:56→21:41)
[2021-01-16] MEDS: Aspirin Chewable 81 MG TAB PER TUBE SCH (07:56)
[2021-01-16] MEDS: methylPREDNISolone Sod Succ 40 MG VIAL IVP SCH (07:57)
[2021-01-16] MEDS: Pantoprazole 40 MG VIAL IVP SCH ×2 (07:57→21:39)
[2021-01-16] MEDS: Zinc Sulfate 220 MG CAP PER TUBE SCH (07:57)
[2021-01-16] MEDS: Polyethylene Glycol 3350 17 GM Packet PER TUBE SCH (07:57)
[2021-01-16] MEDS ORDERED: Potassium Bicarbonate/Cit Ac 20 MEQ TAB PO SCH (08:00)
[2021-01-16] MEDS ORDERED: Sodium Chloride 0.45% 1,000 ML IV SCH (10:30)
[2021-01-16] MEDS: Thiamine HCl 200 MG/2 ML VIAL SLOW IVP SCH (10:51)
[2021-01-16 11:53] LABS: Bilirubin Neg (Negative); Blood, Urine Negative (Negative); Clarity Clear (Clear); Glucose, Urine (Dipstick) Normal (Negative); Ketone, Urine Negative (Negative); Leukocyte Negative (Negative); Nitrite Negative (Negative); Protein, Urine (Dipstick) 15 mg/dl (Neg-Trace); Specific Gravity, Urine 1.015 (1.002-1.036)
[2021-01-16 12:09] LABS: Bacteria/HPF None Seen HPF (None Seen); RBC/HPF 0-3 HPF (0-3); Squamous Epithelial 0-3 HPF (0-3); WBC/HPF 0-3 HPF (0-3); Yeast-Budding 2+ HPF (None Seen)
[2021-01-16] MEDS: HumaLOG 300 UNITS/3 ML VIAL SC PRN (13:19)
[2021-01-16 15:21] LABS: Anion Gap 15 mmol/L (10-20); BUN (Urea Nitrogen) 29 mg/dL (9.8-20.1); Calc. Creatinine Clearance 121 mL/min (70-130); Calcium 9.1 mg/dL (7.8-10.44); Carbon Dioxide 24 mmol/L (23-31); Chloride 116 mmol/L (98-107); Glucose 222 mg/dL (80-115); Sodium 151 mmol/L (136-145)
[2021-01-17 05:07] LABS: Anion Gap 14 mmol/L (10-20); BUN (Urea Nitrogen) 26 mg/dL (9.8-20.1); Calc. Creatinine Clearance 124 mL/min (70-130); Calcium 8.8 mg/dL (7.8-10.44); Carbon Dioxide 24 mmol/L (23-31); Chloride 118 mmol/L (98-107); Glucose 120 mg/dL (80-115); Potassium 3.6 mmol/L (3.5-5.1); Sodium 152 mmol/L (136-145)
[2021-01-17] MEDS: Budesonide 0.5 MG/2 ML NEB NEB SCH ×2 (07:05→18:52)
[2021-01-17] MEDS: NPH, Human Insulin Isophane 300 UNIT/3 ML VIAL SC SCH ×3 (08:58→22:46)
[2021-01-17] MEDS: Enoxaparin Sodium 40 MG/0.4 ML SYRINGE SC SCH ×2 (09:28→22:36)
[2021-01-17] MEDS: Cyclobenzaprine 10 MG TAB PER TUBE SCH (09:28)
[2021-01-17] MEDS: Zinc Sulfate 220 MG CAP PER TUBE SCH (09:29)
[2021-01-17] MEDS: Pantoprazole 40 MG VIAL IVP SCH (09:29)
[2021-01-17] MEDS: Aspirin Chewable 81 MG TAB PER TUBE SCH (09:29)
[2021-01-17] MEDS: Gabapentin 300 MG CAP PO SCH ×2 (09:29→15:27)
[2021-01-17] MEDS: clonazePAM 1 MG TAB PER TUBE SCH ×2 (09:29→22:36)
[2021-01-17] MEDS: Dexamethasone 4 MG TAB PO SCH (09:29)
[2021-01-17] MEDS: Ascorbic Acid 500 mg Chewable Tablet PER TUBE SCH (09:29)
[2021-01-17] MEDS: Folic Acid 1 MG TAB PER TUBE SCH (09:29)
[2021-01-17] MEDS: Polyethylene Glycol 3350 17 GM Packet PER TUBE SCH (09:30)
[2021-01-17] MEDS: Senokot S 8.6-50 MG TAB PER TUBE SCH (09:30)
[2021-01-17] MEDS: Thiamine HCl 200 MG/2 ML VIAL SLOW IVP SCH (11:54)
[2021-01-17] MEDS: HumaLOG 300 UNITS/3 ML VIAL SC PRN ×2 (12:03→17:36)
[2021-01-17] MEDS ORDERED: Senokot S 8.6-50 MG TAB PER TUBE PRN (20:25)
[2021-01-17] MEDS ORDERED: Polyethylene Glycol 3350 17 GM Packet PER TUBE PRN (20:25)
[2021-01-17] MEDS: Famotidine 20 MG TAB PO SCH (22:36)
[2021-01-18 05:37] LABS: #Eosinphils 0.2 10x3/uL (0.0-0.5); #Monocytes 0.5 10x3/uL (0.0-1.1); #Neutrophils 6.3 10x3/uL (1.5-8.4); %Basophils 0.4 % (0.0-2.0); %Eosinophils 2.3 % (0.0-6.0); %Lymphocytes 28.3 % (18.0-47.0); %Monocytes 4.9 % (0.0-10.0); %Neutrophils 63.2 % (40.0-75.0); Hemoglobin 10.5 g/dL (12.0-15.5); Mean Corpuscular HGB CONC 29.9 g/dL (32.0-36.0); Mean Corpuscular Hemoglobin 27.6 pg (27.0-33.0); Mean Corpuscular Volume 92.4 fl (81.6-98.3); Platelet Count 178 10x3/uL (150-450); RBC Distribution Width 15.9 % (11.5-14.5); White Blood Cell (WBC) Count 9.9 10x3/uL (3.5-10.5)
[2021-01-18 05:53] LABS: ALT (SGPT) 20 U/L (8-55); AST (SGOT) 13 U/L (5-34); Albumin 3.4 g/dL (3.4-4.8); Alkaline Phosphatase 48 U/L (40-110); Anion Gap 15 mmol/L (10-20); BUN (Urea Nitrogen) 22 mg/dL (9.8-20.1); Bilirubin, Total 0.5 mg/dL (0.2-1.2); Calc. Creatinine Clearance 137 mL/min (70-130); Calcium 8.9 mg/dL (7.8-10.44); Carbon Dioxide 23 mmol/L (23-31); Chloride 115 mmol/L (98-107); Globulin 2.9 g/dL (2.4-3.5); Glucose 129 mg/dL (80-115); Magnesium 1.9 mg/dL (1.6-2.6); Phosphorus 3.1 mg/dL (2.3-4.7); Potassium 3.4 mmol/L (3.5-5.1); Protein, Total 6.3 g/dL (5.8-8.1); Sodium 150 mmol/L (136-145)
[2021-01-18 06:19] LABS: Platelet Morphology Comment Appears Adequate; RBC Morphology Normal
[2021-01-18] MEDS: NPH, Human Insulin Isophane 300 UNIT/3 ML VIAL SC SCH ×2 (07:14→14:56)
[2021-01-18] MEDS ORDERED: Potassium Chloride 20 MEQ TAB PO SCH (08:00)
[2021-01-18] MEDS: Budesonide 0.5 MG/2 ML NEB NEB SCH ×2 (08:15→18:54)
[2021-01-18] MEDS ORDERED: Magnesium 2 GM/50 ML 2 GM in Premix Bag 1 BAG IVPB SCH (09:00)
[2021-01-18] MEDS: Enoxaparin Sodium 40 MG/0.4 ML SYRINGE SC SCH ×2 (09:54→21:00)
[2021-01-18] MEDS: clonazePAM 1 MG TAB PER TUBE SCH ×2 (09:55→21:00)
[2021-01-18] MEDS: Ascorbic Acid 500 mg Chewable Tablet PER TUBE SCH (09:55)
[2021-01-18] MEDS: Folic Acid 1 MG TAB PER TUBE SCH (09:55)
[2021-01-18] MEDS: Famotidine 20 MG TAB PO SCH ×2 (09:55→21:00)
[2021-01-18] MEDS: Zinc Sulfate 220 MG CAP PER TUBE SCH (09:55)
[2021-01-18] MEDS: Dexamethasone 4 MG TAB PO SCH (09:55)
[2021-01-18] MEDS: Aspirin Chewable 81 MG TAB PER TUBE SCH (09:55)
[2021-01-18] MEDS: Thiamine HCl 200 MG/2 ML VIAL SLOW IVP SCH (14:32)
[2021-01-19] MEDS: NPH, Human Insulin Isophane 300 UNIT/3 ML VIAL SC SCH ×2 (00:25→06:32)
[2021-01-19 05:43] LABS: #Basophils 0.1 10x3/uL (0.0-0.2); #Eosinphils 0.2 10x3/uL (0.0-0.5); #Monocytes 0.5 10x3/uL (0.0-1.1); #Neutrophils 7.6 10x3/uL (1.5-8.4); %Basophils 0.5 % (0.0-2.0); %Eosinophils 2.2 % (0.0-6.0); %Lymphocytes 20.9 % (18.0-47.0); %Monocytes 4.7 % (0.0-10.0); %Neutrophils 70.8 % (40.0-75.0); Hemoglobin 10.7 g/dL (12.0-15.5); Mean Corpuscular HGB CONC 30.6 g/dL (32.0-36.0); Mean Corpuscular Hemoglobin 27.6 pg (27.0-33.0); Mean Corpuscular Volume 90.2 fl (81.6-98.3); Mean Platelet Volume 11.2 fl (7.4-10.4); Platelet Count 160 10x3/uL (150-450); RBC Distribution Width 15.8 % (11.5-14.5); Red Blood Cell (RBC) Count 3.88 10x6/uL (3.90-5.03); White Blood Cell (WBC) Count 10.7 10x3/uL (3.5-10.5)
[2021-01-19 05:48] LABS: ALT (SGPT) 18 U/L (8-55); AST (SGOT) 16 U/L (5-34); Albumin 3.4 g/dL (3.4-4.8); Alkaline Phosphatase 55 U/L (40-110); Anion Gap 16 mmol/L (10-20); BUN (Urea Nitrogen) 21 mg/dL (9.8-20.1); Bilirubin, Total 0.5 mg/dL (0.2-1.2); Calc. Creatinine Clearance 144 mL/min (70-130); Calcium 8.9 mg/dL (7.8-10.44); Carbon Dioxide 21 mmol/L (23-31); Chloride 116 mmol/L (98-107); Globulin 2.9 g/dL (2.4-3.5); Glucose 118 mg/dL (80-115); Magnesium 2.1 mg/dL (1.6-2.6); Phosphorus 3.2 mg/dL (2.3-4.7); Potassium 3.5 mmol/L (3.5-5.1); Protein, Total 6.3 g/dL (5.8-8.1); Sodium 149 mmol/L (136-145)
[2021-01-19] MEDS: Budesonide 0.5 MG/2 ML NEB NEB SCH (07:47)
[2021-01-19 07:54] VITALS: BMI 39.5
[2021-01-19] MEDS ORDERED: predniSONE 20 MG TAB PO SCH (08:00)
[2021-01-19] MEDS ORDERED: Potassium Bicarbonate/Cit Ac 20 MEQ TAB PO SCH (09:00)
[2021-01-19] MEDS: Enoxaparin Sodium 40 MG/0.4 ML SYRINGE SC SCH (09:53)
[2021-01-19] MEDS: clonazePAM 1 MG TAB PER TUBE SCH (09:54)
[2021-01-19] MEDS: Ascorbic Acid 500 mg Chewable Tablet PER TUBE SCH (09:54)
[2021-01-19] MEDS: Famotidine 20 MG TAB PO SCH (09:54)
[2021-01-19] MEDS: Zinc Sulfate 220 MG CAP PER TUBE SCH (09:54)
[2021-01-19] MEDS: Aspirin Chewable 81 MG TAB PER TUBE SCH (09:54)
[2021-01-19] MEDS: Folic Acid 1 MG TAB PER TUBE SCH (09:54)
[2021-01-19] MEDS: Thiamine HCl 200 MG/2 ML VIAL SLOW IVP SCH (11:52)
[2021-01-19 12:26] VITALS: BP 147/91; TEMP 97
== END 2021-01-19 14:07 | DRG 870 ==
LOC: CSHICU 10:37 → CSHTELE 01-12 23:20
PROVIDERS: ADMIT Hospitalist; ATTEND Family Medicine
PROC: 5A09457 Assistance with Respiratory Ventilation, 24-96 Consecutive Hours, Continuous Positive Airway Pressure (ICD-10-PCS; 2020-12-28)
PROC: 8E0ZXY6 Isolation (ICD-10-PCS; 2020-12-28)
PROC: 5A1955Z Respiratory Ventilation, Greater than 96 Consecutive Hours (ICD-10-PCS; principal; 2020-12-30)
PROC: 0BH17EZ Insertion of Endotracheal Airway into Trachea, Via Natural or Artificial Opening (ICD-10-PCS; 2020-12-30)
PROC: XW0DXM6 Introduction of Baricitinib into Mouth and Pharynx, External Approach, New Technology Group 6 (ICD-10-PCS; 2020-12-30)
PROC: 02HV33Z Insertion of Infusion Device into Superior Vena Cava, Percutaneous Approach (ICD-10-PCS; 2021-01-09)
PROC: B548ZZA Ultrasonography of Superior Vena Cava, Guidance (ICD-10-PCS; 2021-01-09)
DX: A41.9 Sepsis, unspecified organism (principal); U07.1 COVID-19; J12.82 Pneumonia due to coronavirus disease 2019; J96.01 Acute respiratory failure with hypoxia; G92.8 Other toxic encephalopathy; N17.9 Acute kidney failure, unspecified; E87.0 Hyperosmolality and hypernatremia; I42.9 Cardiomyopathy, unspecified; G62.81 Critical illness polyneuropathy; D68.69 Other thrombophilia; I50.32 Chronic diastolic (congestive) heart failure; R65.20 Severe sepsis without septic shock; J45.909 Unspecified asthma, uncomplicated; E11.9 Type 2 diabetes mellitus without complications; E86.0 Dehydration; G89.29 Other chronic pain; M54.9 Dorsalgia, unspecified; I11.0 Hypertensive heart disease with heart failure; E87.6 Hypokalemia; R00.0 Tachycardia, unspecified; R13.12 Dysphagia, oropharyngeal phase; R33.9 Retention of urine, unspecified; Z78.1 Physical restraint status
CPT/HCPCS: 36415; 36416; 36569; 36600; 70450; 71045; 74018; 74230; 80048; 80053; 80076; 80202; 81001; 82140; 82248; 82570; 82607; 82728; 82746; 82805; 83735; 83880; 83930; 83935; 84100; 84145; 84300; 84439; 84443; 84484; 85025; 85379; 85652; 86140; 87040; 87070; 87086; 87205; 87449; 87899; 93005; 93010; 93306; 94002; 94003; 94640; 94660; 94760; C1751; C9113; J0692; J1100; J1650; J1815; J1940; J2060; J2270; J2405; J2704; J2920; J2930; J3370; J3411; J3475; J3480; J3490; J7050; J7512; J7620; J7626; J8540; P9045; P9047

== ENCOUNTER 2022-01-01 12:00 | Inpatient (IN) | payer OTHER ==
[2022-01-06] MEDS ORDERED: Morphine 10 MG/ML VIAL ONE (09:59)
[2022-01-06] MEDS ORDERED: Ketorolac Tromethamine 30 MG/ML VIAL ONE ×2 (09:59→11:29)
[2022-01-06] MEDS ORDERED: EPINEPHrine 1 MG/ML AMP ONE (09:59)
[2022-01-06] MEDS ORDERED: Tranexamic Acid 1,000 MG/10 ML VIAL ONE (10:00)
[2022-01-06] MEDS ORDERED: Ropivacaine 0.2% HCl/PF 0 ML ONE (10:00)
[2022-01-06] MEDS ORDERED: Neomycin-Polymyxin 1 ML AMP ONE (10:01)
[2022-01-06] MEDS ORDERED: Acetaminophen 325 MG TAB ONE (11:30)
[2022-01-06] MEDS ORDERED: Rocuronium Bromide 10 MG/ML (10ML VIAL) ONE (12:17)
[2022-01-06] MEDS ORDERED: Fentanyl 100 MCG/2 ML VIAL ONE ×3 (12:17→16:51)
[2022-01-06] MEDS ORDERED: PROPOFOL 20 ML ONE ×2 (12:17→15:13)
[2022-01-06] MEDS ORDERED: SUGAMMADEX SODIUM 200 MG/2 ML VIAL ONE (12:23)
[2022-01-06] MEDS ORDERED: Lidocaine 2% 6 ML SYR ONE (12:24)
[2022-01-06] MEDS ORDERED: Ropivacaine 0.5% HCl/PF (150 MG/30 ML VIAL) ONE (12:28)
[2022-01-06] MEDS ORDERED: Ropivacaine 0.2% HCl/PF 20 ML ONE (12:28)
[2022-01-06] MEDS ORDERED: Dexamethasone 4 mg/ml Vial ONE ×2 (12:29→17:02)
[2022-01-06] MEDS ORDERED: Midazolam HCl 2 mg/2 ml Vial ONE (12:30)
[2022-01-06] MEDS ORDERED: Lidocaine 1% PF 5 ML VIAL ONE (12:31)
[2022-01-06] MEDS ORDERED: Lidocaine 1% MPF 2 ML VIAL ONE ×2 (12:33→17:36)
[2022-01-06] MEDS ORDERED: CEFAZOLIN 1 GM VIAL ONE (12:34)
[2022-01-06] MEDS ORDERED: Bisacodyl 10 MG SUPP PR PRN (12:41)
[2022-01-06] MEDS ORDERED: Acetaminophen 325 MG TAB PO PRN (12:41)
[2022-01-06] MEDS ORDERED: traMADol HCl 50 MG TAB PO PRN (12:41)
[2022-01-06] MEDS ORDERED: diphenhydrAMINE 50 MG CAP PO PRN (12:41)
[2022-01-06] MEDS ORDERED: Ondansetron PF 4 MG/2 ML Vial IVP PRN ×2 (12:41→13:30)
[2022-01-06] MEDS ORDERED: Ropivacaine 0.2% 550 ML 550 ML NERVE BLCK SCH (13:30)
[2022-01-06] MEDS ORDERED: Promethazine HCl 25 MG/ML VIAL IM PRN (13:30)
[2022-01-06] MEDS ORDERED: Zolpidem Tartrate 5 MG TAB PO PRN (13:30)
[2022-01-06] MEDS ORDERED: ePHEDrine Sulfate 50 MG/10 ML VIAL ONE (13:39)
[2022-01-06] MEDS ORDERED: Norepinephrine 4 MG/4 ML VIAL ONE (15:33)
[2022-01-06] MEDS ORDERED: Ondansetron PF 4 MG/2 ML Vial ONE (17:02)
[2022-01-06] MEDS ORDERED: Bupivacaine 0.25% HCL 30 ML VIAL ONE (17:37)
[2022-01-06] MEDS ORDERED: Albuterol Sulfate 2.5 mg/3 ml Neb ONE (18:23)
[2022-01-06] MEDS: Famotidine/PF 20 mg/2ml Vial SLOW IVP SCH (21:44)
[2022-01-06] MEDS: CEFAZOLIN 2 GM in Sodium Chloride 0.9% 100 ML IVPB SCH (21:45)
[2022-01-06] MEDS: Ketorolac Tromethamine 30 MG/ML VIAL IVP SCH (21:45)
[2022-01-07] MEDS: Sodium Chloride 0.9% 1,000 ML IV SCH ×2 (00:46→05:20)
[2022-01-07] MEDS: Ketorolac Tromethamine 30 MG/ML VIAL IVP SCH ×4 (00:46→18:11)
[2022-01-07] MEDS: HYDROcodone/Acetaminophen 10/325 mg Tablet PO PRN ×2 (03:02→08:59)
[2022-01-07] MEDS: CEFAZOLIN 2 GM in Sodium Chloride 0.9% 100 ML IVPB SCH ×2 (05:21→14:26)
[2022-01-07] MEDS ORDERED: Albuterol Sulfate 2.5 mg/3 ml Neb ONE (08:11)
[2022-01-07] MEDS ORDERED: Ipratropium Bromide 2.5 ml Neb ONE (08:12)
[2022-01-07] MEDS: Famotidine/PF 20 mg/2ml Vial SLOW IVP SCH (08:58)
[2022-01-07] MEDS: Aspirin 81 mg Enteric Coated Tablet PO SCH (08:58)
[2022-01-07 09:26] LABS: Actual Bicarbonate (HCO3a) 22.7 mEq/L (22-28); Base Excess (BEa) -1.4 mEq/L (-2.0 to +3.0); CO2 Tension 35.9 mmHg (35.0-45.0); Carboxyhemoglobin (COHb) 1.1 gm% (0.0-3.0); Hemoglobin (Hb) 11.6 g/dL (12.0-16.0); O2 Tension (PaO2), arterial 52.1 mmHg (> 80.0); Potassium - ABG Lab 3.9 mmol/L (3.70-5.30); Puncture Site LBA; pH, Arterial 7.42 (7.35-7.45)
[2022-01-07 09:28] LABS: ALV-art Gradient 616.025 mmHg (0-20)
[2022-01-07 09:47] LABS: #Eosinphils 0.1 10x3/uL (0.0-0.5); #Monocytes 0.8 10x3/uL (0.0-1.1); #Neutrophils 17.2 10x3/uL (1.5-8.4); %Basophils 0.2 % (0.0-2.0); %Eosinophils 0.4 % (0.0-6.0); %Lymphocytes 8.6 % (18.0-47.0); %Neutrophils 85.9 % (40.0-75.0); Mean Corpuscular HGB CONC 32.5 g/dL (32.0-36.0); Mean Corpuscular Hemoglobin 28.4 pg (27.0-33.0); Mean Corpuscular Volume 87.3 fl (81.6-98.3); Mean Platelet Volume 11.3 fl (7.4-10.4); Platelet Count 205 10x3/uL (150-450); RBC Distribution Width 14.6 % (11.5-14.5); Red Blood Cell (RBC) Count 3.87 10x6/uL (3.90-5.03)
[2022-01-07 09:48] LABS: Lactic Acid 2.4 mmol/L (0.5-2.2)
[2022-01-07 09:51] LABS: Anion Gap 16 mmol/L (10-20); BUN (Urea Nitrogen) 36 mg/dL (9.8-20.1); Calc. Creatinine Clearance 63 mL/min (70-130); Calcium 8.9 mg/dL (7.8-10.44); Carbon Dioxide 23 mmol/L (23-31); Chloride 105 mmol/L (98-107); Estimated GFR 36; Glucose 165 mg/dL (80-115); Potassium 4.8 mmol/L (3.5-5.1); Sodium 139 mmol/L (136-145)
[2022-01-07] MEDS ORDERED: Furosemide 40 MG/4 ML VIAL SLOW IVP SCH ×2 (10:00→20:00)
[2022-01-07] MEDS ORDERED: NOREPINEPHRINE 8 MG/250 ML-D5W 250 ML ONE (11:03)
[2022-01-07] MEDS ORDERED: NOREPINEPHRINE 8 MG/250 ML-D5W 250 ML IVPB SCH (11:15)
[2022-01-07] MEDS ORDERED: VANCOMYCIN 1.75 GM/350 ML BAG 1.75 GM in Premix Bag 1 BAG IVPB SCH ×2 (12:00→20:00)
[2022-01-07 12:15] LABS: Bilirubin Neg (Negative); Blood, Urine Negative (Negative); Clarity Sl. Cloudy (Clear); Glucose, Urine (Dipstick) Normal (Negative); Ketone, Urine Negative (Negative); Leukocyte Negative (Negative); Nitrite Negative (Negative); Protein, Urine (Dipstick) Negative (Neg-Trace); Specific Gravity, Urine 1.015 (1.005-1.030); Urobilinogen Normal mg/dL (Less than 2)
[2022-01-07 12:33] LABS: Troponin I 0.043 ng/mL (< 0.028)
[2022-01-07 12:48] LABS: Bacteria/HPF None Seen HPF (None Seen); Mucous/LPF 1+ LPF (<2+); RBC/HPF 0-3 HPF (0-3); Squamous Epithelial 0-3 HPF (0-3); WBC/HPF 0-3 HPF (0-3)
[2022-01-07] MEDS ORDERED: Iopamidol 370 76% 100 ML VIAL ONE (13:24)
[2022-01-07 13:33] LABS: Lactic Acid 2.5 mmol/L (0.5-2.2)
[2022-01-07] MEDS: Vancomycin HCl 125 MG/5 ML (BATCHED) UDCUP PO SCH ×2 (14:28→20:02)
[2022-01-07] MEDS: Acetaminophen 500 MG TAB PO SCH ×2 (15:24→20:06)
[2022-01-07] MEDS: oxyCODONE 5 MG TAB PO PRN ×2 (16:46→21:33)
[2022-01-07] MEDS ORDERED: Cefepime 2 GM VIAL ONE (19:58)
[2022-01-07] MEDS ORDERED: Sodium Chloride 0.9% 100 ML ONE (19:58)
[2022-01-07] MEDS: Gabapentin 300 MG CAP PO SCH (20:02)
[2022-01-07] MEDS ORDERED: Famotidine/PF 20 mg/2ml Vial SLOW IVP SCH (21:00)
[2022-01-07] MEDS: Cefepime 2 GM in Sodium Chloride 0.9% 100 ML IVPB SCH (22:30)
[2022-01-08] MEDS: HYDROcodone/Acetaminophen 10/325 mg Tablet PO PRN ×5 (00:22→23:09)
[2022-01-08] MEDS: Vancomycin HCl 125 MG/5 ML (BATCHED) UDCUP PO SCH ×4 (02:40→20:25)
[2022-01-08 04:21] LABS: #Eosinphils 0.1 10x3/uL (0.0-0.5); #Monocytes 0.5 10x3/uL (0.0-1.1); #Neutrophils 13.4 10x3/uL (1.5-8.4); %Basophils 0.3 % (0.0-2.0); %Eosinophils 0.4 % (0.0-6.0); %Lymphocytes 4.7 % (18.0-47.0); %Monocytes 3.4 % (0.0-10.0); %Neutrophils 90.3 % (40.0-75.0); Hemoglobin 11.4 g/dL (12.0-15.5); Mean Corpuscular HGB CONC 33.5 g/dL (32.0-36.0); Mean Corpuscular Hemoglobin 28.7 pg (27.0-33.0); Mean Corpuscular Volume 85.6 fl (81.6-98.3); Mean Platelet Volume 11.9 fl (7.4-10.4); Platelet Count 125 10x3/uL (150-450); RBC Distribution Width 14.6 % (11.5-14.5); Red Blood Cell (RBC) Count 3.97 10x6/uL (3.90-5.03); White Blood Cell (WBC) Count 14.8 10x3/uL (3.5-10.5)
[2022-01-08 04:37] LABS: Anion Gap 18 mmol/L (10-20); BUN (Urea Nitrogen) 39 mg/dL (9.8-20.1); Calc. Creatinine Clearance 74 mL/min (70-130); Calcium 8.1 mg/dL (7.8-10.44); Carbon Dioxide 17 mmol/L (23-31); Chloride 107 mmol/L (98-107); Estimated GFR 41; Glucose 186 mg/dL (80-115); Potassium 4.6 mmol/L (3.5-5.1); Sodium 137 mmol/L (136-145)
[2022-01-08 06:22] LABS: Platelet Morphology Comment PLT clumps seen-LOW; RBC Morphology Normal
[2022-01-08] MEDS: Famotidine/PF 20 mg/2ml Vial SLOW IVP SCH ×2 (08:50→20:27)
[2022-01-08] MEDS: Cefepime 2 GM in Sodium Chloride 0.9% 100 ML IVPB SCH (08:51)
[2022-01-08] MEDS: Acetaminophen 500 MG TAB PO SCH ×3 (08:52→20:26)
[2022-01-08] MEDS: Aspirin 81 mg Enteric Coated Tablet PO SCH (08:52)
[2022-01-08] MEDS: Gabapentin 300 MG CAP PO SCH ×3 (08:52→20:25)
[2022-01-08] MEDS ORDERED: Furosemide 40 MG/4 ML VIAL SLOW IVP SCH ×2 (10:15→17:00)
[2022-01-08] MEDS ORDERED: Piperacillin/Tazobactam 3.375 GM in Sodium Chloride 0.9% 100 ML IVPB SCH (10:45)
[2022-01-08 11:44] LABS: SARS-CoV-2 NAA Rapid Test Not Detected (NotDetected)
[2022-01-08] MEDS: Piperacillin/Tazobactam 3.375 GM in Sodium Chloride 0.9% 100 ML IVPB SCH (18:07)
[2022-01-08] MEDS ORDERED: Vancomycin 1.5 GRAM/300 ML BAG 1.5 GM in Premix Bag 1 BAG IVPB SCH (20:00)
[2022-01-09] MEDS: Vancomycin HCl 125 MG/5 ML (BATCHED) UDCUP PO SCH ×4 (02:12→20:32)
[2022-01-09] MEDS: Piperacillin/Tazobactam 3.375 GM in Sodium Chloride 0.9% 100 ML IVPB SCH ×3 (02:12→17:34)
[2022-01-09] MEDS: HYDROcodone/Acetaminophen 10/325 mg Tablet PO PRN ×4 (02:37→22:01)
[2022-01-09 04:44] LABS: #Basophils 0.1 10x3/uL (0.0-0.2); #Eosinphils 0.2 10x3/uL (0.0-0.5); #Monocytes 0.5 10x3/uL (0.0-1.1); #Neutrophils 13.1 10x3/uL (1.5-8.4); %Basophils 0.3 % (0.0-2.0); %Eosinophils 1.6 % (0.0-6.0); %Lymphocytes 2.6 % (18.0-47.0); %Monocytes 3.4 % (0.0-10.0); %Neutrophils 91.3 % (40.0-75.0); Hemoglobin 9.3 g/dL (12.0-15.5); Mean Corpuscular HGB CONC 33.1 g/dL (32.0-36.0); Mean Corpuscular Hemoglobin 28.7 pg (27.0-33.0); Mean Corpuscular Volume 86.7 fl (81.6-98.3); Mean Platelet Volume 11.6 fl (7.4-10.4); Platelet Count 156 10x3/uL (150-450); RBC Distribution Width 14.5 % (11.5-14.5); Red Blood Cell (RBC) Count 3.24 10x6/uL (3.90-5.03); White Blood Cell (WBC) Count 14.3 10x3/uL (3.5-10.5)
[2022-01-09 04:46] LABS: Anion Gap 18 mmol/L (10-20); BUN (Urea Nitrogen) 38 mg/dL (9.8-20.1); Calc. Creatinine Clearance 83 mL/min (70-130); Calcium 8.4 mg/dL (7.8-10.44); Carbon Dioxide 20 mmol/L (23-31); Chloride 106 mmol/L (98-107); Estimated GFR 48; Glucose 142 mg/dL (80-115); Potassium 3.5 mmol/L (3.5-5.1); Sodium 140 mmol/L (136-145)
[2022-01-09] MEDS: Furosemide 40 MG/4 ML VIAL SLOW IVP SCH ×2 (05:16→13:14)
[2022-01-09] MEDS: Famotidine/PF 20 mg/2ml Vial SLOW IVP SCH ×2 (09:06→20:31)
[2022-01-09] MEDS: Acetaminophen 500 MG TAB PO SCH ×3 (09:14→20:31)
[2022-01-09] MEDS: Gabapentin 300 MG CAP PO SCH ×3 (09:14→20:05)
[2022-01-09] MEDS: Aspirin 81 mg Enteric Coated Tablet PO SCH (09:14)
[2022-01-09] MEDS: methylPREDNISolone Sod Succ 40 MG VIAL IVP SCH ×3 (11:21→23:37)
[2022-01-10] MEDS: Piperacillin/Tazobactam 3.375 GM in Sodium Chloride 0.9% 100 ML IVPB SCH ×3 (00:46→17:04)
[2022-01-10] MEDS: Vancomycin HCl 125 MG/5 ML (BATCHED) UDCUP PO SCH ×4 (02:16→21:34)
[2022-01-10] MEDS: HYDROcodone/Acetaminophen 10/325 mg Tablet PO PRN ×2 (02:20→08:58)
[2022-01-10 04:26] LABS: #Monocytes 0.3 10x3/uL (0.0-1.1); #Neutrophils 10.6 10x3/uL (1.5-8.4); %Basophils 0.1 % (0.0-2.0); %Eosinophils 0.1 % (0.0-6.0); %Lymphocytes 5.9 % (18.0-47.0); %Monocytes 2.6 % (0.0-10.0); %Neutrophils 90.7 % (40.0-75.0); Hemoglobin 9.8 g/dL (12.0-15.5); Mean Corpuscular Hemoglobin 28.5 pg (27.0-33.0); Mean Corpuscular Volume 86.3 fl (81.6-98.3); Mean Platelet Volume 11.4 fl (7.4-10.4); Platelet Count 217 10x3/uL (150-450); RBC Distribution Width 14.4 % (11.5-14.5); Red Blood Cell (RBC) Count 3.44 10x6/uL (3.90-5.03); White Blood Cell (WBC) Count 11.7 10x3/uL (3.5-10.5)
[2022-01-10 04:39] LABS: Anion Gap 23 mmol/L (10-20); BUN (Urea Nitrogen) 45 mg/dL (9.8-20.1); Calc. Creatinine Clearance 80 mL/min (70-130); Calcium 9.1 mg/dL (7.8-10.44); Carbon Dioxide 19 mmol/L (23-31); Chloride 104 mmol/L (98-107); Estimated GFR 46; Glucose 180 mg/dL (80-115); Potassium 3.4 mmol/L (3.5-5.1); Sodium 143 mmol/L (136-145)
[2022-01-10] MEDS: Furosemide 40 MG/4 ML VIAL SLOW IVP SCH ×2 (06:41→13:10)
[2022-01-10] MEDS: methylPREDNISolone Sod Succ 40 MG VIAL IVP SCH ×3 (06:41→17:04)
[2022-01-10] MEDS ORDERED: Potassium Chloride 20 MEQ TAB PO SCH ×2 (06:45→22:45)
[2022-01-10] MEDS ORDERED: Sodium Chloride 0.9% 100 ML ONE (07:58)
[2022-01-10] MEDS ORDERED: Piperacillin/Tazobactam 3.375 GM VIAL ONE (07:58)
[2022-01-10] MEDS: Acetaminophen 500 MG TAB PO SCH ×3 (08:09→21:35)
[2022-01-10] MEDS: Famotidine/PF 20 mg/2ml Vial SLOW IVP SCH ×2 (08:10→21:36)
[2022-01-10] MEDS: Gabapentin 300 MG CAP PO SCH (08:10)
[2022-01-10] MEDS: Aspirin 81 mg Enteric Coated Tablet PO SCH (08:10)
[2022-01-10] MEDS ORDERED: HYDROcodone/Acetaminophen 10/325 mg Tablet ONE (09:00)
[2022-01-10] MEDS: Gabapentin 400 MG CAP PO SCH ×2 (14:23→21:34)
[2022-01-10] MEDS: traMADol HCl 50 MG TAB PO PRN ×2 (18:41→22:38)
[2022-01-10] MEDS ORDERED: Electrolyte Replacement Protocol 1 EACH FS PRN (23:00)
[2022-01-11] MEDS: Piperacillin/Tazobactam 3.375 GM in Sodium Chloride 0.9% 100 ML IVPB SCH ×3 (00:52→16:12)
[2022-01-11] MEDS: methylPREDNISolone Sod Succ 40 MG VIAL IVP SCH ×4 (00:52→21:08)
[2022-01-11] MEDS: HYDROcodone/Acetaminophen 10/325 mg Tablet PO PRN ×3 (01:24→21:09)
[2022-01-11 02:02] LABS: Actual Bicarbonate (HCO3a) 25.8 mEq/L (22-28); Base Excess (BEa) 2.5 mEq/L (-2.0 to +3.0); CO2 Tension 35.2 mmHg (35.0-45.0); Calcium, Ionized (arterial) 1.09 mmol/L (1.12-1.30); Carboxyhemoglobin (COHb) 0.1 gm% (0.0-3.0); Critical Notified By: CP.PH; Hemoglobin (Hb) 10.3 g/dL (12.0-16.0); O2 Tension (PaO2), arterial 250.6 mmHg (> 80.0); Potassium - ABG Lab 3.4 mmol/L (3.70-5.30); Puncture Site LRA; RapidComm Collect By CP.PH; pH, Arterial 7.48 (7.35-7.45)
[2022-01-11] MEDS: Vancomycin HCl 125 MG/5 ML (BATCHED) UDCUP PO SCH ×2 (03:31→08:16)
[2022-01-11 04:22] LABS: #Monocytes 0.6 10x3/uL (0.0-1.1); #Neutrophils 10.2 10x3/uL (1.5-8.4); %Basophils 0.1 % (0.0-2.0); %Lymphocytes 8.5 % (18.0-47.0); %Neutrophils 85.6 % (40.0-75.0); Hemoglobin 9.6 g/dL (12.0-15.5); Mean Corpuscular HGB CONC 33.1 g/dL (32.0-36.0); Mean Corpuscular Hemoglobin 28.6 pg (27.0-33.0); Mean Corpuscular Volume 86.3 fl (81.6-98.3); Mean Platelet Volume 10.8 fl (7.4-10.4); Platelet Count 227 10x3/uL (150-450); RBC Distribution Width 13.9 % (11.5-14.5); Red Blood Cell (RBC) Count 3.36 10x6/uL (3.90-5.03); White Blood Cell (WBC) Count 11.9 10x3/uL (3.5-10.5)
[2022-01-11 04:54] LABS: Anion Gap 16 mmol/L (10-20); BUN (Urea Nitrogen) 60 mg/dL (9.8-20.1); Calc. Creatinine Clearance 70 mL/min (70-130); Calcium 9.1 mg/dL (7.8-10.44); Carbon Dioxide 24 mmol/L (23-31); Chloride 102 mmol/L (98-107); Estimated GFR 40; Glucose 226 mg/dL (80-115); Magnesium 2.1 mg/dL (1.6-2.6); Potassium 3.6 mmol/L (3.5-5.1); Sodium 138 mmol/L (136-145)
[2022-01-11] MEDS: Furosemide 40 MG/4 ML VIAL SLOW IVP SCH (06:07)
[2022-01-11] MEDS: Gabapentin 400 MG CAP PO SCH ×3 (08:16→21:18)
[2022-01-11] MEDS: Famotidine/PF 20 mg/2ml Vial SLOW IVP SCH ×2 (08:16→21:08)
[2022-01-11] MEDS: Aspirin 81 mg Enteric Coated Tablet PO SCH (08:16)
[2022-01-11] MEDS: Acetaminophen 500 MG TAB PO SCH ×3 (08:17→21:09)
[2022-01-11] MEDS ORDERED: Gabapentin 400 MG CAP ONE (21:03)
[2022-01-12] MEDS: Piperacillin/Tazobactam 3.375 GM in Sodium Chloride 0.9% 100 ML IVPB SCH ×2 (02:33→08:09)
[2022-01-12 04:32] LABS: #Eosinphils 0.1 10x3/uL (0.0-0.5); #Monocytes 0.7 10x3/uL (0.0-1.1); #Neutrophils 7.8 10x3/uL (1.5-8.4); %Basophils 0.2 % (0.0-2.0); %Eosinophils 0.5 % (0.0-6.0); %Lymphocytes 14.4 % (18.0-47.0); %Monocytes 6.9 % (0.0-10.0); %Neutrophils 74.9 % (40.0-75.0); Hemoglobin 9.8 g/dL (12.0-15.5); Mean Corpuscular HGB CONC 32.5 g/dL (32.0-36.0); Mean Corpuscular Hemoglobin 27.9 pg (27.0-33.0); Mean Platelet Volume 10.8 fl (7.4-10.4); Platelet Count 249 10x3/uL (150-450); RBC Distribution Width 14.1 % (11.5-14.5); Red Blood Cell (RBC) Count 3.51 10x6/uL (3.90-5.03); White Blood Cell (WBC) Count 10.3 10x3/uL (3.5-10.5)
[2022-01-12 04:48] LABS: Anion Gap 18 mmol/L (10-20); BUN (Urea Nitrogen) 57 mg/dL (9.8-20.1); Calc. Creatinine Clearance 67 mL/min (70-130); Calcium 8.5 mg/dL (7.8-10.44); Carbon Dioxide 22 mmol/L (23-31); Chloride 101 mmol/L (98-107); Estimated GFR 37; Glucose 370 mg/dL (80-115); Potassium 3.6 mmol/L (3.5-5.1); Sodium 137 mmol/L (136-145)
[2022-01-12] MEDS: HYDROcodone/Acetaminophen 10/325 mg Tablet PO PRN ×2 (05:10→20:51)
[2022-01-12] MEDS: methylPREDNISolone Sod Succ 40 MG VIAL IVP SCH ×2 (05:11→20:16)
[2022-01-12] MEDS: Acetaminophen 500 MG TAB PO SCH ×3 (08:07→20:16)
[2022-01-12] MEDS: Aspirin 81 mg Enteric Coated Tablet PO SCH (08:08)
[2022-01-12] MEDS: Enoxaparin Sodium 40 MG/0.4 ML SYRINGE SC SCH (08:08)
[2022-01-12] MEDS: Gabapentin 400 MG CAP PO SCH ×3 (08:08→20:15)
[2022-01-12] MEDS: Famotidine/PF 20 mg/2ml Vial SLOW IVP SCH (08:09)
[2022-01-12] MEDS ORDERED: Furosemide 40 MG/4 ML VIAL SLOW IVP SCH (09:00)
[2022-01-12] MEDS: cefTRIAXone\\ROCEPHIN 2 GM in Sodium Chloride 0.9% 100 ML IVPB SCH (10:53)
[2022-01-13 02:44] VITALS: BMI 41.2
[2022-01-13 06:17] LABS: Anion Gap 18 mmol/L (10-20); BUN (Urea Nitrogen) 47 mg/dL (9.8-20.1); Calc. Creatinine Clearance 86 mL/min (70-130); Calcium 8.1 mg/dL (7.8-10.44); Carbon Dioxide 21 mmol/L (23-31); Chloride 103 mmol/L (98-107); Estimated GFR 52; Glucose 309 mg/dL (80-115); Potassium 4.2 mmol/L (3.5-5.1); Sodium 138 mmol/L (136-145)
[2022-01-13] MEDS: HYDROcodone/Acetaminophen 10/325 mg Tablet PO PRN ×4 (06:26→20:13)
[2022-01-13 07:02] LABS: Hemoglobin 9.9 g/dL (12.0-15.5); Mean Corpuscular HGB CONC 32.7 g/dL (32.0-36.0); Mean Corpuscular Hemoglobin 27.9 pg (27.0-33.0); Mean Corpuscular Volume 85.4 fl (81.6-98.3); Mean Platelet Volume 10.8 fl (7.4-10.4); Platelet Count 271 10x3/uL (150-450); RBC Distribution Width 13.4 % (11.5-14.5); Red Blood Cell (RBC) Count 3.55 10x6/uL (3.90-5.03)
[2022-01-13] MEDS: Enoxaparin Sodium 40 MG/0.4 ML SYRINGE SC SCH (07:35)
[2022-01-13] MEDS: Aspirin 81 mg Enteric Coated Tablet PO SCH (07:35)
[2022-01-13] MEDS: methylPREDNISolone Sod Succ 40 MG VIAL IVP SCH ×2 (07:36→20:14)
[2022-01-13] MEDS: Gabapentin 400 MG CAP PO SCH ×3 (07:37→20:12)
[2022-01-13] MEDS: Acetaminophen 500 MG TAB PO SCH ×3 (07:39→20:22)
[2022-01-13] MEDS ORDERED: Dextrose 50% Abboject 50 ML SYRINGE SLOW IVP PRN (08:46)
[2022-01-13] MEDS ORDERED: Dextrose 5% in Water 1,000 ML IV PRN (08:46)
[2022-01-13 08:52] LABS: MDiff Complete? YES
[2022-01-13 08:55] LABS: Lymphocytes 17 % (21-51); Monocytes 7 % (0-10); Neutrophil 76 % (42-75)
[2022-01-13 08:56] LABS: Platelet Morphology Comment Appears Adequate
[2022-01-13 08:57] LABS: RBC Morphology Normal
[2022-01-13] MEDS ORDERED: Famotidine/PF 20 mg/2ml Vial SLOW IVP SCH (09:00)
[2022-01-13] MEDS: cefTRIAXone\\ROCEPHIN 2 GM in Sodium Chloride 0.9% 100 ML IVPB SCH (10:39)
[2022-01-13] MEDS: Insulin Regular 300 UNITS/3 ML VIAL SC PRN ×2 (11:18→17:36)
[2022-01-13 13:53] LABS: Hemoglobin A1c 7.4 % (4.0-6.0)
[2022-01-13 17:09] LABS: Fungus Stain Final report (.)
[2022-01-13] MEDS: Lisinopril 20 MG TAB PO SCH (20:12)
[2022-01-13] MEDS: Hydrochlorothiazide 25 MG TAB PO SCH (20:14)
[2022-01-14] MEDS: Insulin Regular 300 UNITS/3 ML VIAL SC PRN ×3 (00:30→12:03)
[2022-01-14] MEDS: HYDROcodone/Acetaminophen 10/325 mg Tablet PO PRN ×2 (00:30→04:49)
[2022-01-14] MEDS: Lisinopril 20 MG TAB PO SCH (04:51)
[2022-01-14 05:32] LABS: Anion Gap 15 mmol/L (10-20); BUN (Urea Nitrogen) 32 mg/dL (9.8-20.1); Calc. Creatinine Clearance 104 mL/min (70-130); Calcium 8.5 mg/dL (7.8-10.44); Carbon Dioxide 24 mmol/L (23-31); Chloride 103 mmol/L (98-107); Estimated GFR 65; Glucose 231 mg/dL (80-115); Potassium 4.2 mmol/L (3.5-5.1); Sodium 138 mmol/L (136-145)
[2022-01-14 05:36] LABS: Hemoglobin 10.2 g/dL (12.0-15.5); Mean Corpuscular Hemoglobin 28.2 pg (27.0-33.0); Mean Corpuscular Volume 85.4 fl (81.6-98.3); Mean Platelet Volume 10.4 fl (7.4-10.4); Platelet Count 278 10x3/uL (150-450); RBC Distribution Width 13.5 % (11.5-14.5); Red Blood Cell (RBC) Count 3.62 10x6/uL (3.90-5.03); White Blood Cell (WBC) Count 13.5 10x3/uL (3.5-10.5)
[2022-01-14 05:44] LABS: MDiff Complete? YES
[2022-01-14 07:03] LABS: Band 1 % (5-11); Lymphocytes 17 % (21-51); Monocytes 4 % (0-10); Myelocyte 1 % (0-0); Reactive Lymphocytes 1 % (0-10)
[2022-01-14 07:04] LABS: Metamyelocyte 1 % (0-0); Neutrophil 75 % (42-75)
[2022-01-14 07:05] LABS: Platelet Morphology Comment Appears Adequate; RBC Morphology Normal
[2022-01-14] MEDS: Enoxaparin Sodium 40 MG/0.4 ML SYRINGE SC SCH (08:54)
[2022-01-14] MEDS: methylPREDNISolone Sod Succ 40 MG VIAL IVP SCH (08:54)
[2022-01-14] MEDS: Gabapentin 400 MG CAP PO SCH ×2 (08:55→15:36)
[2022-01-14] MEDS: Acetaminophen 500 MG TAB PO SCH ×2 (08:55→15:36)
[2022-01-14] MEDS: Aspirin 81 mg Enteric Coated Tablet PO SCH (08:55)
[2022-01-14] MEDS: Hydrochlorothiazide 25 MG TAB PO SCH (08:55)
[2022-01-14] MEDS ORDERED: Famotidine/PF 20 mg/2ml Vial SLOW IVP SCH (09:00)
[2022-01-14] MEDS: cefTRIAXone\\ROCEPHIN 2 GM in Sodium Chloride 0.9% 100 ML IVPB SCH (11:16)
[2022-01-14 11:56] VITALS: BP 163/72; TEMP 98.2
== END 2022-01-14 16:57 | disposition home or self-care (01) | DRG 483 ==
LOC: CSHERHOLD 01-06 11:00 → CSHTELE 01-06 21:11 → CSHICU 01-07 10:29 → CSHTELE 01-07 23:41 → CSHICU 01-08 02:07 → CSHTELE 01-13 12:32
PROVIDERS: ADMIT Orthopaedic Surgery; ATTEND Internal Medicine
PROC: 0RRJ00Z Replacement of Right Shoulder Joint with Reverse Ball and Socket Synthetic Substitute, Open Approach (ICD-10-PCS; principal; 2022-01-06)
PROC: 0RPJ0JZ Removal of Synthetic Substitute from Right Shoulder Joint, Open Approach (ICD-10-PCS; 2022-01-06)
PROC: 5A09457 Assistance with Respiratory Ventilation, 24-96 Consecutive Hours, Continuous Positive Airway Pressure (ICD-10-PCS; 2022-01-07)
PROC: 5A0945A Assistance with Respiratory Ventilation, 24-96 Consecutive Hours, High Flow/Velocity Cannula (ICD-10-PCS; 2022-01-10)
DX: T84.038A Mechanical loosening of other internal prosthetic joint, initial encounter (principal); J96.01 Acute respiratory failure with hypoxia; J18.9 Pneumonia, unspecified organism; A04.72 Enterocolitis due to Clostridium difficile, not specified as recurrent; Z68.41 Body mass index [BMI] 40.0-44.9, adult; N17.9 Acute kidney failure, unspecified; Y83.8 Other surgical procedures as the cause of abnormal reaction of the patient, or of later complication, without mention of misadventure at the time of the procedure; Z20.822 Contact with and (suspected) exposure to COVID-19; I10 Essential (primary) hypertension; G89.29 Other chronic pain; R53.81 Other malaise; D69.6 Thrombocytopenia, unspecified; E66.01 Morbid (severe) obesity due to excess calories; M54.9 Dorsalgia, unspecified; F17.210 Nicotine dependence, cigarettes, uncomplicated; Z86.16 Personal history of COVID-19; Z87.01 Personal history of pneumonia (recurrent); Z88.8 Allergy status to other drugs, medicaments and biological substances; Z91.040 Latex allergy status; Z88.5 Allergy status to narcotic agent; Z88.2 Allergy status to sulfonamides; Z79.899 Other long term (current) drug therapy; Z90.49 Acquired absence of other specified parts of digestive tract; Z90.89 Acquired absence of other organs; Z90.710 Acquired absence of both cervix and uterus; Z80.1 Family history of malignant neoplasm of trachea, bronchus and lung; Z80.0 Family history of malignant neoplasm of digestive organs
CPT/HCPCS: 36415; 36416; 36600; 71045; 71275; 80048; 81001; 82306; 82805; 83036; 83605; 83690; 83735; 84132; 84145; 84484; 85025; 87040; 87070; 87081; 87086; 87102; 87116; 87205; 87206; 87324; 87449; 87493; 87811; 88305; 88331; 93005; 93010; 93306; 94640; 94660; 94760; A4306; C1713; C1762; C1776; J0171; J0690; J0692; J0696; J1100; J1650; J1815; J1885; J1940; J2250; J2270; J2405; J2543; J2704; J2795; J2920; J3010; J3370; J3490; J7050; J7611; Q9967; S0020; S0028

== ENCOUNTER 2022-12-07 08:43 | Outpatient (CLI) | payer OTHER | END 2022-12-07 08:44 | disposition home or self-care (01) | LOC: CSHCP 08:43 | PROVIDERS: ATTEND Internal Medicine | DX: R06.09 Other forms of dyspnea (principal); J98.4 Other disorders of lung | CPT/HCPCS: 94010; 94726; 94729; 94760 ==

== ENCOUNTER 2023-10-26 09:13 | Day surgery (SDC) | payer OTHER ==
[2023-10-26] MEDS ORDERED: Iopamidol-M 200 41% 10 ML VIAL FS ONE (09:45)
[2023-10-26 10:55] VITALS: BP 149/79; TEMP 97.4
== END 2023-10-26 11:38 | disposition home or self-care (01) ==
LOC: CSHRAD 09:13
PROVIDERS: ATTEND Orthopaedic Surgery
PROC: B02BYZZ Computerized Tomography (CT Scan) of Spinal Cord using Other Contrast (ICD-10-PCS; principal; 2023-10-26)
DX: S32.009K Unspecified fracture of unspecified lumbar vertebra, subsequent encounter for fracture with nonunion (principal); Z88.8 Allergy status to other drugs, medicaments and biological substances; Z88.5 Allergy status to narcotic agent; Z91.040 Latex allergy status; Z88.1 Allergy status to other antibiotic agents; Z88.2 Allergy status to sulfonamides; X58.XXXA Exposure to other specified factors, initial encounter
CPT/HCPCS: 62284; 72132; 77003; Q9966